=== PATIENT | male | born 1965 | race Caucasian/White ===

== ENCOUNTER 2021-07-12 12:41 | Outpatient (CLI) | payer MEDICARE, MEDICAID, SELFPAY ==
[2021-07-12 12:51] VITALS: BMI 19.9
[2021-07-12] MEDS: LORazepam (*CRX) 0.5 MG TABLET PO (13:00)
[2021-07-12] MEDS: SODIUM CHLORIDE 0.9% IV 250 ML 10 ML IVPB (13:00)
[2021-07-12 13:09] LABS: Basophils Absolute Auto 0.05 K/mm3 (0.00-0.10); Basophils Percent Auto 0.6 % (0.0-1.0); Eosinophils Absolute Auto 0.25 K/mm3 (0.02-0.50); Eosinophils Percent Auto 2.8 % (1.0-6.0); Hematocrit 36.5 % (40.0-54.0); Hemoglobin 11.9 g/dL (14.0-18.0); Immature Granulocyte Absolute 0.03 K/mm3 (0.00-0.00); Immature Granulocyte Percent A 0.3 % (0.0-0.0); Lymphocytes Absolute Auto 1.18 K/mm3 (1.10-4.50); Lymphocytes Percent Auto 13.2 % (18.0-42.0); Mean Corpuscular HGB Conc 32.6 g/dL (32.0-36.0); Mean Corpuscular Hemoglobin 31.6 pg (27.0-31.0); Mean Corpuscular Volume 97.1 fL (78.0-102.0); Mean Platelet Volume 9.1 fl (8.7-11.0); Monocytes Absolute Auto 0.66 K/mm3 (0.10-0.90); Monocytes Percent Auto 7.4 % (2.0-11.0); Neutrophils Absolute Auto 6.8 K/mm3 (1.7-7.2); Neutrophils Percent Auto 75.7 % (50.0-70.0); Platelet Count Result 301 K/mm3 (150-420); Red Blood Count 3.76 M/mm3 (4.70-6.10); Red Cell Distribution Width 12.8 % (11.6-14.4); White Blood Count 8.9 K/mm3 (4.8-10.8)
[2021-07-12 13:13] VITALS: BP 136/84; PULSE 60; RESP 14; TEMP 35.9; O2SAT 98
[2021-07-12 13:25] LABS: Alanine Aminotransferase 11 U/L (16-63); Albumin Level 3.1 g/dL (3.4-5.0); Alkaline Phosphatase 145 U/L (46-116); Anion Gap 6 mmol/L (8-16); Aspartate Amino Transferase 14 U/L (15-37); Bilirubin,Total 0.4 mg/dL (0.00-1.00); Blood Urea Nitrogen 24 mg/dL (7-18); Calcium 9.3 mg/dL (8.5-10.1); Carbon Dioxide 27 mmol/L (21-32); Chloride 100 mmol/L (98-108); Estimated CRCL calculation 71 ml/min; Estimated Glomerular Filt Rate > 60; Glucose 86 mg/dL (70-99); Magnesium 1.7 mg/dL (1.8-2.4); Osmolality Calculated 279 mOsm/kg (285-295); Potassium 4.2 mmol/L (3.5-5.1); Sodium 133 mmol/L (136-145); Total Protein 7.2 g/dL (6.4-8.2)
[2021-07-12] MEDS: PALONOSETRON HCL 0.25 MG/5 ML VIAL IV PUSH (14:00)
[2021-07-12] MEDS: DEXAMETHASONE SOD PHOS INJ 4 MG/ML VIAL 12 MG IV PUSH (14:03)
[2021-07-12] MEDS: FAMOTIDINE 20 MG/2 ML VIAL IV PUSH (14:05)
[2021-07-12] MEDS: FOSAPREPITANT DIMEGLUMINE 150 MG in SODIUM CHLORIDE 0.9% IV 250 ML 500 MG IVPB (14:09)
[2021-07-12] MEDS: HEPARIN SODIUM LOCK FLUSH 500 UNITS/5 ML SYRINGE IV PUSH (15:51)
--- NOTE | 2021-07-12 17:19 | PC.NURSE ---
Patient here for Cycle 1 Cisplatin chemo regime. Chemo education given. Labs drawn/reviewed results/ok'd for chemo. All concerns answered. IV Chemo regimen administered. SEE MAR. Tolerated well. Safe exit of hospital. Will return July after radiation for Cycle 2.
== END 2021-07-12 12:42 | disposition home or self-care (01) ==
LOC: CHSTREATRM 12:48
PROVIDERS: Visit Provider Internal Medicine Hematology & Oncology
DX: Z51.11 Encounter for antineoplastic chemotherapy (principal); C09.9 Malignant neoplasm of tonsil, unspecified
CPT/HCPCS: 36415; 80053; 83735; 85025; 96366; 96367; 96375; 96413; A9270; J1100; J1453; J2469; J3475; J3480; J7030; J7040; J7050; J9060

== ENCOUNTER 2021-08-02 09:55 | Outpatient (CLI) | payer MEDICARE, MEDICAID, SELFPAY ==
--- NOTE | 2021-08-02 10:15 | PC.NURSE ---
Pt to OP infusion amb per self. Chemo plan of care discussed. Pt has no questions or complaints. Oriented to area. Reminded to call with needs.
[2021-08-02 10:29] LABS: Hematocrit 30.9 % (40.0-54.0); Hemoglobin 9.7 g/dL (14.0-18.0); Mean Corpuscular HGB Conc 31.4 g/dL (32.0-36.0); Mean Corpuscular Hemoglobin 31.6 pg (27.0-31.0); Mean Corpuscular Volume 100.7 fL (78.0-102.0); Mean Platelet Volume 8.8 fl (8.7-11.0); Platelet Count Result 176 K/mm3 (150-420); Red Blood Count 3.07 M/mm3 (4.70-6.10); Red Cell Distribution Width 14.4 % (11.6-14.4); White Blood Count 4.6 K/mm3 (4.8-10.8)
[2021-08-02 11:01] VITALS: BP 135/86; PULSE 51; RESP 20; TEMP 35.8; O2SAT 97
[2021-08-02 11:01] LABS: Alanine Aminotransferase 13 U/L (16-63); Albumin Level 2.8 g/dL (3.4-5.0); Alkaline Phosphatase 104 U/L (46-116); Anion Gap 6 mmol/L (8-16); Aspartate Amino Transferase 11 U/L (15-37); Bilirubin,Total 0.2 mg/dL (0.00-1.00); Blood Urea Nitrogen 17 mg/dL (7-18); Calcium 8.2 mg/dL (8.5-10.1); Carbon Dioxide 29 mmol/L (21-32); Chloride 106 mmol/L (98-108); Estimated Glomerular Filt Rate > 60; Glucose 79 mg/dL (70-99); Magnesium 1.7 mg/dL (1.8-2.4); Osmolality Calculated 292 mOsm/kg (285-295); Potassium 3.9 mmol/L (3.5-5.1); Sodium 141 mmol/L (136-145); Total Protein 5.6 g/dL (6.4-8.2)
[2021-08-02] MEDS: LORazepam (*CRX) 0.5 MG TABLET PO (11:20)
[2021-08-02] MEDS: FAMOTIDINE 20 MG/2 ML VIAL (11:20)
[2021-08-02] MEDS: DEXAMETHASONE SOD PHOS INJ 4 MG/ML VIAL 12 MG IV PUSH (11:23)
[2021-08-02] MEDS: PALONOSETRON HCL 0.25 MG/5 ML VIAL IV PUSH (11:30)
[2021-08-02] MEDS: FOSAPREPITANT DIMEGLUMINE 150 MG in SODIUM CHLORIDE 0.9% IV 250 ML 750 MG IVPB (11:35)
--- NOTE | 2021-08-02 12:30 | PC.NURSE ---
Pt ate 100% of lunch without complaint.
--- NOTE | 2021-08-02 14:00 | PC.NURSE ---
Pt up to BR to void and back to bed. Has no complaints.
[2021-08-02] MEDS: MANNITOL 20% 62.5 ML, SODIUM CHLORIDE 0.9% IV 100 ML 400 ML IVPB (14:02)
--- NOTE | 2021-08-02 15:30 | PC.NURSE ---
Pt sleeping. Appears comfortable.
[2021-08-02] MEDS: HEPARIN SODIUM LOCK FLUSH 500 UNITS/5 ML SYRINGE IV PUSH (16:20)
--- NOTE | 2021-08-02 16:31 | PC.NURSE ---
Pt discharged to home amb per self.
== END 2021-08-02 09:56 | disposition home or self-care (01) ==
LOC: CHSTREATRM 10:01
PROVIDERS: Visit Provider Internal Medicine Hematology & Oncology
DX: Z51.11 Encounter for antineoplastic chemotherapy (principal); C09.9 Malignant neoplasm of tonsil, unspecified
CPT/HCPCS: 36415; 80053; 83735; 85027; 96365; 96366; 96367; 96374; 96375; 96413; A9270; J1100; J1453; J2469; J3475; J3480; J7030; J7040; J7050; J9060

== ENCOUNTER 2021-08-23 11:03 | Outpatient (CLI) | payer MEDICARE, MEDICAID, SELFPAY ==
[2021-08-23 11:30] VITALS: BMI 18.0
[2021-08-23 11:31] LABS: Hematocrit 31.9 % (40.0-54.0); Hemoglobin 10.4 g/dL (14.0-18.0); Mean Corpuscular HGB Conc 32.6 g/dL (32.0-36.0); Mean Corpuscular Hemoglobin 31.6 pg (27.0-31.0); Mean Platelet Volume 9.6 fl (8.7-11.0); Platelet Count Result 388 K/mm3 (150-420); Red Blood Count 3.29 M/mm3 (4.70-6.10); Red Cell Distribution Width 15.4 % (11.6-14.4); White Blood Count 2.4 K/mm3 (4.8-10.8)
[2021-08-23 11:32] VITALS: BP 120/83; PULSE 64; RESP 14; TEMP 36; O2SAT 97
[2021-08-23 11:53] LABS: Albumin Level 3.2 g/dL (3.4-5.0); Alkaline Phosphatase 99 U/L (46-116); Anion Gap 3 mmol/L (8-16); Aspartate Amino Transferase < 10 U/L (15-37); Bilirubin,Total 0.3 mg/dL (0.00-1.00); Blood Urea Nitrogen 29 mg/dL (7-18); Calcium 8.5 mg/dL (8.5-10.1); Carbon Dioxide 30 mmol/L (21-32); Chloride 101 mmol/L (98-108); Estimated CRCL calculation 52 ml/min; Estimated Glomerular Filt Rate > 60; Glucose 82 mg/dL (70-99); Osmolality Calculated 282 mOsm/kg (285-295); Potassium 4.6 mmol/L (3.5-5.1); Sodium 134 mmol/L (136-145); Total Protein 6.9 g/dL (6.4-8.2)
[2021-08-23] MEDS: SODIUM CHLORIDE 0.9% IV 250 ML 30 ML (12:00)
[2021-08-23 12:05] LABS: Alanine Aminotransferase 7 U/L (16-63)
[2021-08-23 12:11] LABS: Band Neutrophils Percent 0 % (0-6); Basophils Percent Manual 0 % (0-1); Eosinophils Percent Manual 0 % (1-6); Lymphocytes Absolute Manual 0.76 K/mm3 (1.1-4.5); Lymphocytes Percent Manual 32 % (18-44); Monocytes Absolute Manual 0.67 K/mm3 (0.1-0.90); Monocytes Percent Manual 28 % (3-9); Neutrophils Absolute Manual 0.96 K/mm3 (1.3-6.7); Neutrophils Percent Manual 40 % (46-73); Platelet Estimate Adequate (Adequate); Total Cells Counted 100
[2021-08-23] MEDS: FAMOTIDINE 20 MG/2 ML VIAL IV PUSH (12:18)
[2021-08-23] MEDS: LORazepam (*CRX) 0.5 MG TABLET PO (12:29)
[2021-08-23] MEDS: PALONOSETRON HCL 0.25 MG/5 ML VIAL IV PUSH (13:21)
[2021-08-23] MEDS: FOSAPREPITANT DIMEGLUMINE 150 MG in SODIUM CHLORIDE 0.9% IV 250 ML 750 MG IVPB (13:33)
[2021-08-23] MEDS: DEXAMETHASONE SOD PHOS INJ 4 MG/ML VIAL 12 MG IV PUSH (13:33)
[2021-08-23] MEDS: MANNITOL 20% 62.5 ML, SODIUM CHLORIDE 0.9% IV 100 ML 400 ML IVPB (15:15)
[2021-08-23] MEDS: HEPARIN SODIUM LOCK FLUSH 500 UNITS/5 ML SYRINGE IV PUSH (17:29)
[2021-08-23 17:33] VITALS: BP 123/80; PULSE 59; RESP 14; TEMP 36.7; O2SAT 96
--- NOTE | 2021-08-23 17:35 | PC.NURSE ---
Patient here for Cycle 3 of 3 so far of Cisplatin IV chemo regimen. Patient came from radiation. Labs draw/reviewed/ok'd for chemo. Ongoing chemo education given. All concerns voiced. Patient hoping that this is it. He will be seeing Dr. Nicole in 2 weeks. IV Chemo regimen administered. SEE MAR. Tolerated well. Safe exit of hospital.
== END 2021-08-23 11:04 | disposition home or self-care (01) ==
LOC: CHSTREATRM 11:08
PROVIDERS: PCP Internal Medicine Hematology & Oncology; Visit Provider Internal Medicine Hematology & Oncology
DX: Z51.11 Encounter for antineoplastic chemotherapy (principal); C09.9 Malignant neoplasm of tonsil, unspecified
CPT/HCPCS: 36415; 80053; 83735; 85025; 96366; 96367; 96375; 96413; A9270; J1100; J1453; J2469; J3475; J3480; J7040; J7050; J9060

== ENCOUNTER 2022-04-08 09:53 | Outpatient (CLI) | payer MEDICARE, MEDICAID, SELFPAY ==
[2022-04-08 10:04] VITALS: BMI 17.9
[2022-04-08 10:29] VITALS: BP 140/99; PULSE 60; RESP 14; TEMP 36.6; O2SAT 98
[2022-04-08 10:32] LABS: Mean Corpuscular Volume 94.1 fL (78.0-102.0)
[2022-04-08 10:57] LABS: Hemoglobin 12.6 g/dL (14.0-18.0); Red Blood Count 3.74 M/mm3 (4.70-6.10); White Blood Count 9.3 K/mm3 (4.8-10.8)
[2022-04-08 10:58] LABS: Hematocrit 37.1 % (40.0-54.0); Mean Corpuscular Hemoglobin 33.7 pg (27.0-31.0); Mean Platelet Volume 10.1 fl (8.7-11.0); Platelet Count Result 272 K/mm3 (150-420); Red Cell Distribution Width 11.9 % (11.6-14.4)
[2022-04-08 10:59] LABS: Basophils Percent Auto 0.5 % (0.0-1.0); Immature Granulocyte Absolute 0.06 K/mm3 (0.00-0.00); Immature Granulocyte Percent A 0.6 % (0.0-0.0); Lymphocytes Percent Auto 7.9 % (18.0-42.0); Monocytes Percent Auto 8.6 % (2.0-11.0); Neutrophils Percent Auto 79.4 % (50.0-70.0)
[2022-04-08 11:00] LABS: Basophils Absolute Auto 0.05 K/mm3 (0.00-0.10); Eosinophils Absolute Auto 0.28 K/mm3 (0.02-0.50); Lymphocytes Absolute Auto 0.73 K/mm3 (1.10-4.50); Neutrophils Absolute Auto 7.4 K/mm3 (1.7-7.2)
[2022-04-08 11:02] LABS: Albumin Level 3.1 g/dL (3.4-5.0); Alkaline Phosphatase 166 U/L (46-116); Anion Gap 11 mmol/L (8-16); Aspartate Amino Transferase 15 U/L (15-37); Bilirubin,Total 0.7 mg/dL (0.00-1.00); Blood Urea Nitrogen 32 mg/dL (7-18); Calcium 8.9 mg/dL (8.5-10.1); Carbon Dioxide 26 mmol/L (21-32); Chloride 102 mmol/L (98-108); Estimated CRCL calculation 38 ml/min; Estimated Glomerular Filt Rate 43; Glucose 85 mg/dL (70-99); Osmolality Calculated 293 mOsm/kg (285-295); Potassium 4.2 mmol/L (3.5-5.1); Sodium 139 mmol/L (136-145); Thyroid Stimulating Hormone 0.41 uIU/mL (0.36-3.74); Total Protein 7.3 g/dL (6.4-8.2)
[2022-04-08 11:10] LABS: Alanine Aminotransferase 6 U/L (16-63)
[2022-04-08] MEDS: FOSAPREPITANT DIMEGLUMINE 150 MG in SODIUM CHLORIDE 0.9% IV 250 ML 750 MG IVPB (11:30)
[2022-04-08] MEDS: PEMBROLIZUMAB 200 MG in SODIUM CHLORIDE 0.9% IV 100 ML IVPB (12:30)
[2022-04-08 13:09] VITALS: BP 145/91; PULSE 58; RESP 14; TEMP 36.4; O2SAT 98
--- NOTE | 2022-04-08 13:10 | PC.NURSE ---
Patient here for cycle 1 of 3 chemo regimen-Carbo/5 FU/Keytruda. Education given. All concerns answered. Blood drawn/reviewed/ok'd for chemo. Chemo regimen administered. SEE MAR. Patient tolerated well. Will be taking chemo home pump of 5 FU for next 4 days. All education on chemo spill kit/take home pump etc given. Safe exit of hospital with friend. Will return 04/12/22 at 1300 to get pump off and flush port.
[2022-04-10 23:04] LABS: Cortisol Random 29.8 mcg/dL (***)
--- NOTE | 2022-04-12 12:59 | PC.NURSE ---
Patient here for Chemo pump removal. All concerns answered about chemo side effects. Patient feeling very fatique. Chemo pump infusion completed. Pump removed. Port asystomatic of s/sx of infection. Port flushed per protocol. Tolerated well. Safe exit of hospital. Will return Apr 29, 2022 at 1000 for cycle 2.
== END 2022-04-08 09:54 | disposition home or self-care (01) ==
PROVIDERS: PCP Internal Medicine Hematology & Oncology; Visit Provider Internal Medicine Hematology & Oncology
DX: Z51.11 Encounter for antineoplastic chemotherapy (principal); C09.9 Malignant neoplasm of tonsil, unspecified; R45.4 Irritability and anger
CPT/HCPCS: 36415; 80053; 82533; 84443; 85025; 96367; 96413; 96416; 96417; J1100; J1453; J2405; J7050; J9045; J9190; J9271

== ENCOUNTER 2022-04-29 09:55 | Outpatient (CLI) | payer MEDICARE, MEDICAID, SELFPAY ==
[2022-04-29 10:18] VITALS: BP 135/91; PULSE 64; RESP 14; TEMP 36.7; O2SAT 99
[2022-04-29 10:20] VITALS: BMI 19.0
[2022-04-29 10:34] LABS: Hematocrit 31.3 % (40.0-54.0); Hemoglobin 10.4 g/dL (14.0-18.0); Mean Corpuscular HGB Conc 33.2 g/dL (32.0-36.0); Mean Corpuscular Hemoglobin 33.3 pg (27.0-31.0); Mean Corpuscular Volume 100.3 fL (78.0-102.0); Mean Platelet Volume 9.7 fl (8.7-11.0); Platelet Count Result 137 K/mm3 (150-420); Red Blood Count 3.12 M/mm3 (4.70-6.10); White Blood Count 3.3 K/mm3 (4.8-10.8)
[2022-04-29 10:44] LABS: Alanine Aminotransferase 10 U/L (16-63); Albumin Level 3.6 g/dL (3.4-5.0); Alkaline Phosphatase 112 U/L (46-116); Anion Gap 7 mmol/L (8-16); Aspartate Amino Transferase < 10 U/L (15-37); Bilirubin,Total 0.2 mg/dL (0.00-1.00); Blood Urea Nitrogen 34 mg/dL (7-18); Calcium 8.6 mg/dL (8.5-10.1); Carbon Dioxide 27 mmol/L (21-32); Chloride 104 mmol/L (98-108); Estimated CRCL calculation 41 ml/min; Estimated Glomerular Filt Rate 44; Glucose 106 mg/dL (70-99); Osmolality Calculated 293 mOsm/kg (285-295); Potassium 4.2 mmol/L (3.5-5.1); Sodium 138 mmol/L (136-145); Total Protein 7.1 g/dL (6.4-8.2)
[2022-04-29] MEDS: SODIUM CHLORIDE 0.9% IV 250 ML 10 ML IVPB (10:50)
[2022-04-29 11:00] LABS: Eosinophils Absolute Manual 0.29 K/mm3 (0.02-0.5); Eosinophils Percent Manual 9 % (1-6); Lymphocytes Absolute Manual 0.89 K/mm3 (1.1-4.5); Lymphocytes Percent Manual 27 % (18-44); Monocytes Absolute Manual 0.19 K/mm3 (0.1-0.90); Monocytes Percent Manual 6 % (3-9); Neutrophils Absolute Manual 1.91 K/mm3 (1.3-6.7); Neutrophils Percent Manual 58 % (46-73); Platelet Estimate Adequate (Adequate); Total Cells Counted 100
[2022-04-29 11:03] LABS: Thyroid Stimulating Hormone 2.43 uIU/mL (0.36-3.74)
[2022-04-29] MEDS: FOSAPREPITANT DIMEGLUMINE 150 MG in SODIUM CHLORIDE 0.9% IV 250 ML 750 MG IVPB (11:20)
[2022-04-29] MEDS: PEMBROLIZUMAB 200 MG in SODIUM CHLORIDE 0.9% IV 100 ML IVPB (12:24)
[2022-04-29 12:50] VITALS: BP 123/88; PULSE 68; RESP 14; O2SAT 97
--- NOTE | 2022-04-29 13:09 | PC.NURSE ---
Patient here for cycle 2 chemo regimen. Education given. Labs drawn/reviewed/ok'd. IV Chemo regimen administered. See MAR. tolerated well. Discharged with 5 Fu continue on home pump --all education reinforced on take home pump and chemo/care etc. Voices understanding. Safe exit of hospital with friend. Will return on 05/03/22 @ 1300 for pump removal and port flush.
--- NOTE | 2022-05-03 13:05 | PC.NURSE ---
05/03/22 1300 Patient here to get chemo pump removed and port flushed. Voices only had one bad day of feeling blah. No emesis. Chemo pump removed. Port flushed per protocol. Safe exit of hospital with friend. Will return 05/22/22 at 1000 for cycle 3.KJ
[2022-05-03 14:16] LABS: Cortisol Random 16.8 mcg/dL (***)
== END 2022-04-29 09:56 | disposition home or self-care (01) ==
PROVIDERS: PCP Internal Medicine Hematology & Oncology; Visit Provider Internal Medicine Hematology & Oncology
DX: Z51.11 Encounter for antineoplastic chemotherapy (principal); C09.9 Malignant neoplasm of tonsil, unspecified; R45.4 Irritability and anger
CPT/HCPCS: 36415; 80053; 82533; 84443; 85025; 96367; 96413; 96416; 96417; J1100; J1453; J2405; J7050; J9045; J9190; J9271

== ENCOUNTER 2022-05-20 10:03 | Outpatient (CLI) | payer MEDICARE, MEDICAID, SELFPAY ==
[2022-05-20 10:15] VITALS: BP 118/72; PULSE 72; RESP 16; TEMP 35.9; O2SAT 96
[2022-05-20 10:16] VITALS: BMI 18.3
[2022-05-20 10:17] LABS: Basophils Absolute Auto 0.02 K/mm3 (0.00-0.10); Basophils Percent Auto 0.4 % (0.0-1.0); Eosinophils Absolute Auto 0.12 K/mm3 (0.02-0.50); Eosinophils Percent Auto 2.3 % (1.0-6.0); Hematocrit 29.7 % (40.0-54.0); Hemoglobin 9.8 g/dL (14.0-18.0); Immature Granulocyte Absolute 0.05 K/mm3 (0.00-0.00); Immature Granulocyte Percent A 0.9 % (0.0-0.0); Lymphocytes Absolute Auto 1.06 K/mm3 (1.10-4.50); Mean Corpuscular Hemoglobin 33.1 pg (27.0-31.0); Mean Corpuscular Volume 100.3 fL (78.0-102.0); Mean Platelet Volume 10.1 fl (8.7-11.0); Monocytes Percent Auto 11.3 % (2.0-11.0); Neutrophils Absolute Auto 3.5 K/mm3 (1.7-7.2); Neutrophils Percent Auto 65.1 % (50.0-70.0); Platelet Count Result 161 K/mm3 (150-420); Red Blood Count 2.96 M/mm3 (4.70-6.10); Red Cell Distribution Width 15.1 % (11.6-14.4); White Blood Count 5.3 K/mm3 (4.8-10.8)
[2022-05-20] MEDS: SODIUM CHLORIDE 0.9% IV 250 ML 10 ML IVPB (10:30)
[2022-05-20 10:41] LABS: Albumin Level 3.1 g/dL (3.4-5.0); Alkaline Phosphatase 135 U/L (46-116); Anion Gap 8 mmol/L (8-16); Bilirubin,Total 0.4 mg/dL (0.00-1.00); Blood Urea Nitrogen 35 mg/dL (7-18); Calcium 8.9 mg/dL (8.5-10.1); Carbon Dioxide 26 mmol/L (21-32); Chloride 105 mmol/L (98-108); Estimated CRCL calculation 41 ml/min; Estimated Glomerular Filt Rate 47; Glucose 88 mg/dL (70-99); Osmolality Calculated 295 mOsm/kg (285-295); Potassium 4.5 mmol/L (3.5-5.1); Sodium 139 mmol/L (136-145); Thyroid Stimulating Hormone 0.56 uIU/mL (0.36-3.74); Total Protein 7.6 g/dL (6.4-8.2)
[2022-05-20 10:50] LABS: Alanine Aminotransferase 13 U/L (16-63); Aspartate Amino Transferase 10 U/L (15-37)
[2022-05-20] MEDS: FOSAPREPITANT DIMEGLUMINE 150 MG in SODIUM CHLORIDE 0.9% IV 250 ML 750 MG IVPB (11:27)
[2022-05-20] MEDS: PEMBROLIZUMAB 200 MG in SODIUM CHLORIDE 0.9% IV 100 ML IVPB (12:20)
[2022-05-20 12:56] VITALS: BP 109/63; PULSE 72; RESP 14; TEMP 36.3; O2SAT 97
--- NOTE | 2022-05-20 12:59 | PC.NURSE ---
Patient here for cycle 3 chemo regimen. Education given. All concerns answered. Patient with increase fatigue today. Labs drawn/reviewed.ok'd for chemo. Chemo regimen administered. SEE MAR. Tolerated well. Will return 05/24/22 at 1300 for chemo pump to removed. Safe exit of hospital with friend.
[2022-05-24 04:14] LABS: Cortisol Random 21.5 mcg/dL (***)
[2022-05-24] MEDS: HEPARIN SODIUM LOCK FLUSH 500 UNITS/5 ML SYRINGE IV PUSH (12:45)
--- NOTE | 2022-05-24 18:27 | PC.NURSE ---
05/24/22 1245 Patient here to get chemo pump removed and port deccessed and flushed. Reports had two days that he was sick to his stomach and just not feeling good. Reports feels pretty good today. Chemo pump removed and port flushed SEE MAR. Will be scheduled for scans then more likely with come to get cycle 4 on 06/10/22. Safe exit of hospital with friend.
== END 2022-05-20 10:04 | disposition home or self-care (01) ==
LOC: CHSTREATRM 10:05
PROVIDERS: Visit Provider Internal Medicine Hematology & Oncology
DX: Z51.11 Encounter for antineoplastic chemotherapy (principal); C09.9 Malignant neoplasm of tonsil, unspecified; R45.4 Irritability and anger
CPT/HCPCS: 36415; 36592; 80053; 82533; 84443; 85025; 96367; 96413; 96416; 96417; J1100; J1453; J2405; J7050; J9045; J9190; J9271

== ENCOUNTER 2022-06-10 09:56 | Outpatient (CLI) | payer MEDICARE, MEDICAID, SELFPAY ==
[2022-06-10 10:23] LABS: Hematocrit 25.1 % (40.0-54.0); Hemoglobin 8.5 g/dL (14.0-18.0); Mean Corpuscular HGB Conc 33.9 g/dL (32.0-36.0); Mean Corpuscular Hemoglobin 35.3 pg (27.0-31.0); Mean Corpuscular Volume 104.1 fL (78.0-102.0); Mean Platelet Volume 10.8 fl (8.7-11.0); Platelet Count Result 120 K/mm3 (150-420); Red Blood Count 2.41 M/mm3 (4.70-6.10); Red Cell Distribution Width 19.9 % (11.6-14.4); White Blood Count 3.5 K/mm3 (4.8-10.8)
[2022-06-10 10:25] VITALS: BP 143/89; PULSE 92; RESP 14; TEMP 36.6; O2SAT 99
[2022-06-10 10:29] VITALS: BMI 19.0
[2022-06-10 10:35] LABS: Band Neutrophils Percent 1 % (0-6); Eosinophils Absolute Manual 0.28 K/mm3 (0.02-0.5); Eosinophils Percent Manual 8 % (1-6); Lymphocytes Absolute Manual 0.59 K/mm3 (1.1-4.5); Lymphocytes Percent Manual 17 % (18-44); Monocytes Absolute Manual 0.38 K/mm3 (0.1-0.90); Monocytes Percent Manual 11 % (3-9); Neutrophils Absolute Manual 2.24 K/mm3 (1.3-6.7); Neutrophils Percent Manual 63 % (46-73); Platelet Estimate Adequate (Adequate); Total Cells Counted 100
[2022-06-10 10:37] LABS: Alanine Aminotransferase 16 U/L (16-63); Albumin Level 3.4 g/dL (3.4-5.0); Alkaline Phosphatase 104 U/L (46-116); Anion Gap 8 mmol/L (8-16); Aspartate Amino Transferase 12 U/L (15-37); Bilirubin,Total 0.3 mg/dL (0.00-1.00); Blood Urea Nitrogen 32 mg/dL (7-18); Calcium 8.4 mg/dL (8.5-10.1); Carbon Dioxide 26 mmol/L (21-32); Chloride 107 mmol/L (98-108); Estimated CRCL calculation 47 ml/min; Estimated Glomerular Filt Rate 52; Glucose 94 mg/dL (70-99); Osmolality Calculated 298 mOsm/kg (285-295); Potassium 4.3 mmol/L (3.5-5.1); Sodium 141 mmol/L (136-145); Total Protein 6.7 g/dL (6.4-8.2)
[2022-06-10] MEDS: SODIUM CHLORIDE 0.9% IV 250 ML 10 ML IVPB (10:53)
[2022-06-10] MEDS: FOSAPREPITANT DIMEGLUMINE 150 MG in SODIUM CHLORIDE 0.9% IV 250 ML 750 MG IVPB (11:20)
[2022-06-10] MEDS: PEMBROLIZUMAB 200 MG in SODIUM CHLORIDE 0.9% IV 100 ML IVPB (12:12)
--- NOTE | 2022-06-10 12:53 | PC.NURSE ---
Patient here for chemo regimen #4. Education given. All concerns voiced answered. Labs drawn/reviewed/ok's for chemo. Chemo regimen administered SEE MAR. Tolerated well. Patient going home on chemo take home pump. Will return 06/14/22 at 1300 for pump removal. Safe exit of hospital with friend.
[2022-06-10 13:02] VITALS: BP 143/77; PULSE 88; RESP 14; O2SAT 97
[2022-06-14] MEDS: HEPARIN SODIUM LOCK FLUSH 500 UNITS/5 ML SYRINGE IV PUSH (13:35)
--- NOTE | 2022-06-14 13:35 | PC.NURSE ---
06/14/22 1300 Back for chemo pump removal and port flush. Patient reports did good with this treatment. No N/V. Just tiredness . Chemo pump removed. Port flushed. Safe exit of hospital. Will return 07/01/22 for cycle 5.
== END 2022-06-10 09:57 | disposition home or self-care (01) ==
LOC: CHSTREATRM 09:58
PROVIDERS: Visit Provider Internal Medicine Hematology & Oncology
DX: Z51.11 Encounter for antineoplastic chemotherapy (principal); C09.9 Malignant neoplasm of tonsil, unspecified
CPT/HCPCS: 36415; 36592; 80053; 85025; 96367; 96413; 96416; 96417; J1100; J1453; J2405; J7050; J9045; J9190; J9271

== ENCOUNTER 2022-07-01 10:16 | Outpatient (CLI) | payer MEDICARE, MEDICAID, SELFPAY ==
[2022-07-01 10:45] LABS: Basophils Absolute Auto 0.02 K/mm3 (0.00-0.10); Basophils Percent Auto 0.4 % (0.0-1.0); Eosinophils Percent Auto 3.5 % (1.0-6.0); Hematocrit 28.2 % (40.0-54.0); Hemoglobin 9.9 g/dL (14.0-18.0); Immature Granulocyte Absolute 0.02 K/mm3 (0.00-0.00); Immature Granulocyte Percent A 0.4 % (0.0-0.0); Lymphocytes Absolute Auto 0.77 K/mm3 (1.10-4.50); Lymphocytes Percent Auto 13.7 % (18.0-42.0); Mean Corpuscular HGB Conc 35.1 g/dL (32.0-36.0); Mean Corpuscular Hemoglobin 38.4 pg (27.0-31.0); Mean Corpuscular Volume 109.3 fL (78.0-102.0); Mean Platelet Volume 10.5 fl (8.7-11.0); Monocytes Absolute Auto 0.63 K/mm3 (0.10-0.90); Monocytes Percent Auto 11.2 % (2.0-11.0); Neutrophils Percent Auto 70.8 % (50.0-70.0); Platelet Count Result 140 K/mm3 (150-420); Red Blood Count 2.58 M/mm3 (4.70-6.10); White Blood Count 5.6 K/mm3 (4.8-10.8)
[2022-07-01 10:51] VITALS: BP 128/76; PULSE 66; RESP 14; TEMP 36.2; O2SAT 100
[2022-07-01 10:53] VITALS: BMI 18.8
[2022-07-01 11:18] LABS: Alanine Aminotransferase 13 U/L (16-63); Albumin Level 3.9 g/dL (3.4-5.0); Alkaline Phosphatase 106 U/L (46-116); Anion Gap 11 mmol/L (8-16); Aspartate Amino Transferase 15 U/L (15-37); Bilirubin,Total 0.5 mg/dL (0.00-1.00); Blood Urea Nitrogen 37 mg/dL (7-18); Calcium 9.1 mg/dL (8.5-10.1); Carbon Dioxide 27 mmol/L (21-32); Chloride 105 mmol/L (98-108); Estimated CRCL calculation 37 ml/min; Estimated Glomerular Filt Rate 39; Glucose 140 mg/dL (70-99); Osmolality Calculated 306 mOsm/kg (285-295); Potassium 3.9 mmol/L (3.5-5.1); Sodium 143 mmol/L (136-145); Thyroid Stimulating Hormone 0.57 uIU/mL (0.36-3.74); Total Protein 7.5 g/dL (6.4-8.2)
[2022-07-01] MEDS: SODIUM CHLORIDE 0.9% IV 250 ML 10 ML IVPB (11:46)
[2022-07-01] MEDS: FOSAPREPITANT DIMEGLUMINE 150 MG in SODIUM CHLORIDE 0.9% IV 250 ML 750 MG IVPB (12:00)
[2022-07-01] MEDS: PEMBROLIZUMAB 200 MG in SODIUM CHLORIDE 0.9% IV 100 ML IVPB (13:02)
[2022-07-01 13:39] VITALS: BP 121/63; PULSE 68; RESP 14; O2SAT 100
--- NOTE | 2022-07-01 13:42 | PC.NURSE ---
Patient here for cycle 5 of chemo regimen. Reports being very tired today. Also more emotional then his usual. Patient had scans this week and won't find results until next week. Labs drawn/reviewed/ok'd for chemo today. Education given. All concerns voiced. IV chemo regimen administered. SEE MAR. Tolerated well. Will go home on with take home pump of 5 FU infusing. Will return on 07/05/22 Sat for removal. Safe exit of hospital with friend.
[2022-07-04 05:34] LABS: Cortisol Random 21.1 mcg/dL (***)
[2022-07-05] MEDS: HEPARIN SODIUM LOCK FLUSH 500 UNITS/5 ML SYRINGE IV PUSH (13:20)
--- NOTE | 2022-07-05 13:21 | PC.NURSE ---
Patient here for chemo pump removal. Patient reports was down and out feeling bad the first two days, but since that felt ok. Chemo pump removed. Port flushed per protocol. Will return 07/22/22 at 1000 for Cycle 6. States, I see Dr. Nicole on Thursday. Safe exit of hospital with friend.
== END 2022-07-01 10:17 | disposition home or self-care (01) ==
PROVIDERS: Visit Provider Internal Medicine Hematology & Oncology
DX: Z51.11 Encounter for antineoplastic chemotherapy (principal); C09.9 Malignant neoplasm of tonsil, unspecified; R45.4 Irritability and anger
CPT/HCPCS: 36415; 36592; 80053; 82533; 84443; 85025; 96367; 96413; 96416; 96417; J1100; J1453; J2405; J7050; J9045; J9190; J9271

== ENCOUNTER 2022-07-22 10:42 | Outpatient (CLI) | payer MEDICARE, MEDICAID, SELFPAY ==
[2022-07-22 10:59] VITALS: BMI 18.8
[2022-07-22 11:01] VITALS: BP 145/89; PULSE 50; RESP 14; TEMP 36.5; O2SAT 100
[2022-07-22] MEDS: SODIUM CHLORIDE 0.9% IV 250 ML 10 ML IVPB (11:10)
[2022-07-22 11:11] LABS: Hematocrit 25.4 % (40.0-54.0); Hemoglobin 8.2 g/dL (14.0-18.0); Immature Platelet Fraction Pct 4.2 % (1.0-7.0); Mean Corpuscular HGB Conc 32.3 g/dL (32.0-36.0); Mean Corpuscular Hemoglobin 38.9 pg (27.0-31.0); Mean Corpuscular Volume 120.4 fL (78.0-102.0); Mean Platelet Volume 10.9 fl (8.7-11.0); Platelet Count Result 86 K/mm3 (150-420); Red Blood Count 2.11 M/mm3 (4.70-6.10); Red Cell Distribution Width 18.4 % (11.6-14.4); White Blood Count 3.7 K/mm3 (4.8-10.8)
[2022-07-22 11:21] LABS: Band Neutrophils Percent 0 % (0-6); Basophils Percent Manual 0 % (0-1); Eosinophils Absolute Manual 0.18 K/mm3 (0.02-0.5); Eosinophils Percent Manual 5 % (1-6); Lymphocytes Percent Manual 19 % (18-44); Monocytes Absolute Manual 0.37 K/mm3 (0.1-0.90); Monocytes Percent Manual 10 % (3-9); Neutrophils Absolute Manual 2.44 K/mm3 (1.3-6.7); Neutrophils Percent Manual 66 % (46-73); Platelet Estimate Decreased (Adequate); Total Cells Counted 100
[2022-07-22 11:23] LABS: Alanine Aminotransferase 11 U/L (16-63); Albumin Level 3.6 g/dL (3.4-5.0); Alkaline Phosphatase 91 U/L (46-116); Anion Gap 7 mmol/L (8-16); Aspartate Amino Transferase 15 U/L (15-37); Bilirubin,Total 0.3 mg/dL (0.00-1.00); Blood Urea Nitrogen 25 mg/dL (7-18); Calcium 8.4 mg/dL (8.5-10.1); Carbon Dioxide 29 mmol/L (21-32); Chloride 107 mmol/L (98-108); Estimated CRCL calculation 42 ml/min; Estimated Glomerular Filt Rate 46; Glucose 98 mg/dL (70-99); Osmolality Calculated 300 mOsm/kg (285-295); Sodium 143 mmol/L (136-145); Total Protein 6.7 g/dL (6.4-8.2)
[2022-07-22] MEDS: FOSAPREPITANT DIMEGLUMINE 150 MG in SODIUM CHLORIDE 0.9% IV 250 ML 500 MG IVPB (11:57)
[2022-07-22] MEDS: PEMBROLIZUMAB 200 MG in SODIUM CHLORIDE 0.9% IV 100 ML IVPB (12:57)
[2022-07-22 13:39] VITALS: BP 140/73; PULSE 60; RESP 14; TEMP 36.4; O2SAT 98
--- NOTE | 2022-07-22 13:40 | PC.NURSE ---
Patient here for chemo cycle 6 regimen. Reports got good news from scan he had few weeks ago. Re-education given on chemo treatment. Labs drawn/reviewed/ok'd.-Platelet count called to Dr. Nicole and ok'd to proceed. Chemo regime SEE JUN. Tolerated well. Patient dc with Chemo 5 FU on take home pump. Will return 07/26/22 at 1330 for removal. Safe exit of hospital per ambulatory with friend.
[2022-07-27] MEDS: HEPARIN SODIUM LOCK FLUSH 500 UNITS/5 ML SYRINGE IV PUSH (10:04)
--- NOTE | 2022-07-27 10:04 | PC.NURSE ---
07/26/22 1330 Patient return to get chemo pump off. Reports did real good this time. Only compliant is being tired. Chemo pump removed. Safe exit of hospital per ambulatory and with friend.
== END 2022-07-22 10:43 | disposition home or self-care (01) ==
PROVIDERS: Visit Provider Internal Medicine Hematology & Oncology
DX: Z51.11 Encounter for antineoplastic chemotherapy (principal); C09.9 Malignant neoplasm of tonsil, unspecified
CPT/HCPCS: 36415; 36592; 80053; 85025; 85055; 96367; 96413; 96416; 96417; J1100; J1453; J2405; J7050; J9045; J9190; J9271

== ENCOUNTER 2022-08-12 09:49 | Outpatient (CLI) | payer MEDICARE, MEDICAID, SELFPAY ==
--- NOTE | 2022-08-12 10:00 | PC.NURSE ---
Pt to room 202 amb with friend. A&Ox3. Has no complaints or concerns. Oriented to room and plan of care. Call [facility] in reach. Reminded to call with needs.
[2022-08-12 10:19] LABS: Basophils Absolute Auto 0.01 K/mm3 (0.00-0.10); Basophils Percent Auto 0.2 % (0.0-1.0); Eosinophils Absolute Auto 0.07 K/mm3 (0.02-0.50); Eosinophils Percent Auto 1.5 % (1.0-6.0); Hematocrit 25.2 % (40.0-54.0); Hemoglobin 8.3 g/dL (14.0-18.0); Immature Granulocyte Absolute 0.04 K/mm3 (0.00-0.00); Immature Granulocyte Percent A 0.8 % (0.0-0.0); Lymphocytes Absolute Auto 0.71 K/mm3 (1.10-4.50); Lymphocytes Percent Auto 14.8 % (18.0-42.0); Mean Corpuscular HGB Conc 32.9 g/dL (32.0-36.0); Mean Corpuscular Hemoglobin 40.5 pg (27.0-31.0); Mean Corpuscular Volume 122.9 fL (78.0-102.0); Mean Platelet Volume 10.8 fl (8.7-11.0); Monocytes Absolute Auto 0.55 K/mm3 (0.10-0.90); Monocytes Percent Auto 11.5 % (2.0-11.0); Neutrophils Absolute Auto 3.4 K/mm3 (1.7-7.2); Neutrophils Percent Auto 71.2 % (50.0-70.0); Platelet Count Result 128 K/mm3 (150-420); Red Blood Count 2.05 M/mm3 (4.70-6.10); White Blood Count 4.8 K/mm3 (4.8-10.8)
[2022-08-12 10:29] VITALS: BMI 17.1
[2022-08-12 10:36] VITALS: BP 144/100; PULSE 100; RESP 20; TEMP 36.6; O2SAT 100
[2022-08-12 10:43] LABS: Alanine Aminotransferase 14 U/L (16-63); Albumin Level 3.6 g/dL (3.4-5.0); Alkaline Phosphatase 114 U/L (46-116); Anion Gap 8 mmol/L (8-16); Aspartate Amino Transferase 18 U/L (15-37); Bilirubin,Total 0.2 mg/dL (0.00-1.00); Blood Urea Nitrogen 26 mg/dL (7-18); Calcium 8.8 mg/dL (8.5-10.1); Carbon Dioxide 26 mmol/L (21-32); Chloride 105 mmol/L (98-108); Estimated CRCL calculation 40 ml/min; Estimated Glomerular Filt Rate 47; Glucose 97 mg/dL (70-99); Osmolality Calculated 292 mOsm/kg (285-295); Potassium 4.4 mmol/L (3.5-5.1); Sodium 139 mmol/L (136-145); Total Protein 7.1 g/dL (6.4-8.2)
--- NOTE | 2022-08-12 11:15 | PC.NURSE ---
Labs resulted. Pharmacy notified. Pt eating pudding and drinking milk without complaint.
[2022-08-12] MEDS: PEMBROLIZUMAB 200 MG in SODIUM CHLORIDE 0.9% IV 100 ML IVPB (11:35)
[2022-08-12] MEDS: HEPARIN SODIUM LOCK FLUSH 500 UNITS/5 ML SYRINGE IV PUSH (12:05)
--- NOTE | 2022-08-12 12:15 | PC.NURSE ---
Keytruda infused as ordered. Pt tolerated well. Has no concerns or complaints. Discharged to home amb with friend.
[2022-08-16 04:44] LABS: Cortisol Random 15.3 mcg/dL (***)
== END 2022-08-12 09:50 | disposition home or self-care (01) ==
PROVIDERS: Visit Provider Internal Medicine Hematology & Oncology
DX: Z51.11 Encounter for antineoplastic chemotherapy (principal); C09.9 Malignant neoplasm of tonsil, unspecified; R45.4 Irritability and anger
CPT/HCPCS: 36415; 80053; 82533; 84443; 85025; 96413; J9271

== ENCOUNTER 2022-09-02 09:53 | Outpatient (CLI) | payer MEDICARE, MEDICAID, SELFPAY ==
[2022-09-02 10:16] VITALS: BP 172/92; PULSE 60; RESP 14; TEMP 36.3; O2SAT 99
[2022-09-02 10:19] VITALS: BMI 18.3
[2022-09-02 10:19] LABS: Basophils Absolute Auto 0.02 K/mm3 (0.00-0.10); Basophils Percent Auto 0.3 % (0.0-1.0); Eosinophils Absolute Auto 0.49 K/mm3 (0.02-0.50); Eosinophils Percent Auto 7.1 % (1.0-6.0); Hematocrit 27.7 % (40.0-54.0); Hemoglobin 9.1 g/dL (14.0-18.0); Immature Granulocyte Absolute 0.02 K/mm3 (0.00-0.00); Immature Granulocyte Percent A 0.3 % (0.0-0.0); Lymphocytes Absolute Auto 0.61 K/mm3 (1.10-4.50); Lymphocytes Percent Auto 8.8 % (18.0-42.0); Mean Corpuscular HGB Conc 32.9 g/dL (32.0-36.0); Mean Corpuscular Hemoglobin 38.6 pg (27.0-31.0); Mean Corpuscular Volume 117.4 fL (78.0-102.0); Mean Platelet Volume 9.4 fl (8.7-11.0); Monocytes Absolute Auto 0.59 K/mm3 (0.10-0.90); Monocytes Percent Auto 8.6 % (2.0-11.0); Neutrophils Absolute Auto 5.2 K/mm3 (1.7-7.2); Neutrophils Percent Auto 74.9 % (50.0-70.0); Platelet Count Result 200 K/mm3 (150-420); Red Blood Count 2.36 M/mm3 (4.70-6.10); Red Cell Distribution Width 12.3 % (11.6-14.4); White Blood Count 6.9 K/mm3 (4.8-10.8)
[2022-09-02 10:36] LABS: Alanine Aminotransferase 14 U/L (16-63); Alkaline Phosphatase 92 U/L (46-116); Anion Gap 10 mmol/L (8-16); Aspartate Amino Transferase 20 U/L (15-37); Bilirubin,Total 0.2 mg/dL (0.00-1.00); Blood Urea Nitrogen 37 mg/dL (7-18); Calcium 8.6 mg/dL (8.5-10.1); Carbon Dioxide 24 mmol/L (21-32); Chloride 105 mmol/L (98-108); Estimated CRCL calculation 47 ml/min; Estimated Glomerular Filt Rate 54; Glucose 91 mg/dL (70-99); Osmolality Calculated 296 mOsm/kg (285-295); Potassium 4.1 mmol/L (3.5-5.1); Sodium 139 mmol/L (136-145); Total Protein 7.1 g/dL (6.4-8.2)
[2022-09-02] MEDS: PEMBROLIZUMAB 200 MG in SODIUM CHLORIDE 0.9% IV 100 ML IVPB (10:45)
--- NOTE | 2022-09-02 11:14 | PC.NURSE ---
Patient here for cycle 8 IV chemo Keytruda. Education given. Labs drawn/reviewed/ok'd. No concerns voiced. IV Keytruda administered. SEE MAR. Tolerated well. Safe exit of hospital per ambulatory with son/signother. Will return 09/23/22 at 1000 for #9.
[2022-09-02] MEDS: HEPARIN SODIUM LOCK FLUSH 500 UNITS/5 ML SYRINGE IV PUSH (11:19)
[2022-09-02 11:29] VITALS: BP 150/88; PULSE 60; RESP 14; O2SAT 99
== END 2022-09-02 09:54 | disposition home or self-care (01) ==
LOC: CHSTREATRM 09:58
PROVIDERS: PCP Internal Medicine Hematology & Oncology; Visit Provider Internal Medicine Hematology & Oncology
DX: Z51.11 Encounter for antineoplastic chemotherapy (principal); C09.9 Malignant neoplasm of tonsil, unspecified
CPT/HCPCS: 36415; 80053; 85025; 96413; J9271

== ENCOUNTER 2022-09-23 10:45 | Outpatient (CLI) | payer MEDICARE, MEDICAID, SELFPAY ==
[2022-09-23 11:07] LABS: Hematocrit 31.8 % (40.0-54.0); Hemoglobin 10.3 g/dL (14.0-18.0); Mean Corpuscular HGB Conc 32.4 g/dL (32.0-36.0); Mean Corpuscular Hemoglobin 36.5 pg (27.0-31.0); Mean Corpuscular Volume 112.8 fL (78.0-102.0); Mean Platelet Volume 9.3 fl (8.7-11.0); Platelet Count Result 174 K/mm3 (150-420); Red Blood Count 2.82 M/mm3 (4.70-6.10); Red Cell Distribution Width 11.8 % (11.6-14.4); White Blood Count 6.6 K/mm3 (4.8-10.8)
[2022-09-23 11:09] VITALS: BP 138/100; PULSE 72; RESP 14; TEMP 36.6; O2SAT 98
[2022-09-23 11:11] VITALS: BMI 20.2
[2022-09-23 11:19] LABS: Band Neutrophils Percent 0 % (0-6); Lymphocytes Absolute Manual 0.52 K/mm3 (1.1-4.5); Lymphocytes Percent Manual 8 % (18-44); Neutrophils Absolute Manual 4.42 K/mm3 (1.3-6.7); Neutrophils Percent Manual 67 % (46-73); Total Cells Counted 100
[2022-09-23 11:20] LABS: Basophils Absolute Manual 0.06 K/mm3 (0-0.1); Basophils Percent Manual 1 % (0-1); Eosinophils Absolute Manual 0.79 K/mm3 (0.02-0.5); Eosinophils Percent Manual 12 % (1-6); Monocytes Absolute Manual 0.79 K/mm3 (0.1-0.90); Monocytes Percent Manual 12 % (3-9); Platelet Estimate Adequate (Adequate)
[2022-09-23 11:32] LABS: Alanine Aminotransferase 8 U/L (16-63); Albumin Level 3.7 g/dL (3.4-5.0); Anion Gap 9 mmol/L (8-16); Aspartate Amino Transferase 10 U/L (15-37); Bilirubin,Total 0.2 mg/dL (0.00-1.00); Blood Urea Nitrogen 49 mg/dL (7-18); Calcium 8.8 mg/dL (8.5-10.1); Carbon Dioxide 27 mmol/L (21-32); Chloride 104 mmol/L (98-108); Estimated CRCL calculation 49 ml/min; Estimated Glomerular Filt Rate 51; Glucose 89 mg/dL (70-99); Osmolality Calculated 302 mOsm/kg (285-295); Potassium 4.5 mmol/L (3.5-5.1); Sodium 140 mmol/L (136-145); Total Protein 7.2 g/dL (6.4-8.2)
[2022-09-23 11:33] LABS: Alkaline Phosphatase 93 U/L (46-116); Thyroid Stimulating Hormone 2.84 uIU/mL (0.36-3.74)
[2022-09-23] MEDS: PEMBROLIZUMAB 200 MG in SODIUM CHLORIDE 0.9% IV 100 ML IVPB (11:40)
[2022-09-23] MEDS: HEPARIN SODIUM LOCK FLUSH 500 UNITS/5 ML SYRINGE IV PUSH (12:10)
--- NOTE | 2022-09-23 13:10 | PC.NURSE ---
09/23/22 [id number] Patient here for#9 chemo Keytruda infusion. Education given. Labs drawn/reviewed/ok'd for chemo. IV Keytruda administered. SEE MAR. Tolerated well. Will return October 15, 2022 at 100o for #10. Safe exit of hospital per ambulatory with friend and son.
[2022-09-28 06:33] LABS: Cortisol Random 11.9 mcg/dL (***)
== END 2022-09-23 10:46 | disposition home or self-care (01) ==
LOC: CHSTREATRM 10:52
PROVIDERS: Visit Provider Internal Medicine Hematology & Oncology
DX: Z51.11 Encounter for antineoplastic chemotherapy (principal); C09.9 Malignant neoplasm of tonsil, unspecified; R45.4 Irritability and anger
CPT/HCPCS: 36415; 80053; 82533; 84443; 85025; 96413; J9271

== ENCOUNTER 2022-10-15 11:03 | Outpatient (CLI) | payer MEDICARE, MEDICAID, SELFPAY ==
[2022-10-15 11:07] VITALS: BMI 19.3
[2022-10-15 11:17] VITALS: BP 172/86; PULSE 92; RESP 16; TEMP 36.7; O2SAT 98
[2022-10-15 11:26] LABS: Basophils Absolute Auto 0.05 K/mm3 (0.00-0.10); Basophils Percent Auto 0.5 % (0.0-1.0); Eosinophils Absolute Auto 0.92 K/mm3 (0.02-0.50); Eosinophils Percent Auto 9.5 % (1.0-6.0); Hematocrit 37.1 % (40.0-54.0); Hemoglobin 12.1 g/dL (14.0-18.0); Immature Granulocyte Absolute 0.05 K/mm3 (0.00-0.00); Immature Granulocyte Percent A 0.5 % (0.0-0.0); Lymphocytes Percent Auto 9.3 % (18.0-42.0); Mean Corpuscular HGB Conc 32.6 g/dL (32.0-36.0); Mean Corpuscular Hemoglobin 35.2 pg (27.0-31.0); Mean Corpuscular Volume 107.8 fL (78.0-102.0); Mean Platelet Volume 9.4 fl (8.7-11.0); Monocytes Absolute Auto 1.08 K/mm3 (0.10-0.90); Monocytes Percent Auto 11.2 % (2.0-11.0); Neutrophils Absolute Auto 6.7 K/mm3 (1.7-7.2); Platelet Count Result 202 K/mm3 (150-420); Red Blood Count 3.44 M/mm3 (4.70-6.10); Red Cell Distribution Width 11.6 % (11.6-14.4); White Blood Count 9.7 K/mm3 (4.8-10.8)
[2022-10-15 11:41] VITALS: BP 121/63; PULSE 68; RESP 16; TEMP 36.6; O2SAT 98
--- NOTE | 2022-10-15 11:42 | PC.NURSE ---
Patient here for monthly port flush. Procedure explained. Port flushed administered. SEE vascular assessment/Mar. Tolerated well. Port site asystomatic of s/sx of infection. Safe exit of hospital with /amb. Will return 11/18/22 0900 for next port flush.
[2022-10-15 11:43] LABS: Alanine Aminotransferase 11 U/L (16-63); Albumin Level 3.3 g/dL (3.4-5.0); Alkaline Phosphatase 119 U/L (46-116); Anion Gap 7 mmol/L (8-16); Aspartate Amino Transferase 12 U/L (15-37); Bilirubin,Total 0.2 mg/dL (0.00-1.00); Blood Urea Nitrogen 27 mg/dL (7-18); Calcium 8.7 mg/dL (8.5-10.1); Carbon Dioxide 28 mmol/L (21-32); Chloride 104 mmol/L (98-108); Estimated CRCL calculation 49 ml/min; Estimated Glomerular Filt Rate 56; Glucose 101 mg/dL (70-99); Osmolality Calculated 293 mOsm/kg (285-295); Potassium 4.4 mmol/L (3.5-5.1); Sodium 139 mmol/L (136-145); Total Protein 7.2 g/dL (6.4-8.2)
[2022-10-15] MEDS: PEMBROLIZUMAB 200 MG in SODIUM CHLORIDE 0.9% IV 100 ML IVPB (11:45)
[2022-10-15] MEDS: HEPARIN SODIUM LOCK FLUSH 500 UNITS/5 ML SYRINGE IV PUSH (12:13)
--- NOTE | 2022-10-15 12:15 | PC.NURSE ---
Patient here for #10 Keytruda IV infusion. Education given. Blood drawn/reviewed/ok'd. No concerns voiced. IV Keytruda administered. SEE MAR. Tolerated well. Safe exit of hospital per ambulatory with friend. Will return 11/04/22 at 1000 for #11.
== END 2022-10-15 11:04 | disposition home or self-care (01) ==
LOC: CHSTREATRM 11:05
PROVIDERS: Visit Provider Internal Medicine Hematology & Oncology
DX: Z51.11 Encounter for antineoplastic chemotherapy (principal); C09.9 Malignant neoplasm of tonsil, unspecified
CPT/HCPCS: 36415; 36592; 80053; 85025; 96413; 96523; J9271

== ENCOUNTER 2022-11-04 09:56 | Outpatient (CLI) | payer MEDICARE, MEDICAID, SELFPAY ==
[2022-11-04 10:00] VITALS: BP 173/83; PULSE 72; RESP 14; TEMP 36.5; O2SAT 98
[2022-11-04 10:14] LABS: Hematocrit 33.4 % (40.0-54.0); Hemoglobin 10.8 g/dL (14.0-18.0); Mean Corpuscular HGB Conc 32.3 g/dL (32.0-36.0); Mean Platelet Volume 9.1 fl (8.7-11.0); Platelet Count Result 194 K/mm3 (150-420); Red Blood Count 3.18 M/mm3 (4.70-6.10); White Blood Count 7.6 K/mm3 (4.8-10.8)
[2022-11-04 10:28] LABS: Band Neutrophils Percent 1 % (0-6); Basophils Absolute Manual 0.07 K/mm3 (0-0.1); Basophils Percent Manual 1 % (0-1); Eosinophils Absolute Manual 0.83 K/mm3 (0.02-0.5); Eosinophils Percent Manual 11 % (1-6); Lymphocytes Absolute Manual 0.83 K/mm3 (1.1-4.5); Lymphocytes Percent Manual 11 % (18-44); Monocytes Absolute Manual 0.68 K/mm3 (0.1-0.90); Monocytes Percent Manual 9 % (3-9); Neutrophils Absolute Manual 5.16 K/mm3 (1.3-6.7); Neutrophils Percent Manual 67 % (46-73); Platelet Estimate Adequate (Adequate); Total Cells Counted 100
[2022-11-04 10:42] LABS: Alanine Aminotransferase 14 U/L (16-63); Albumin Level 3.8 g/dL (3.4-5.0); Alkaline Phosphatase 127 U/L (46-116); Anion Gap 9 mmol/L (8-16); Bilirubin,Total 0.2 mg/dL (0.00-1.00); Blood Urea Nitrogen 44 mg/dL (7-18); Carbon Dioxide 27 mmol/L (21-32); Chloride 107 mmol/L (98-108); Estimated CRCL calculation 46 ml/min; Estimated Glomerular Filt Rate 47; Glucose 97 mg/dL (70-99); Osmolality Calculated 307 mOsm/kg (285-295); Potassium 4.2 mmol/L (3.5-5.1); Sodium 143 mmol/L (136-145); Total Protein 7.5 g/dL (6.4-8.2)
[2022-11-04] MEDS: PEMBROLIZUMAB 200 MG in SODIUM CHLORIDE 0.9% IV 100 ML IVPB (10:45)
[2022-11-04 10:52] LABS: Aspartate Amino Transferase 12 U/L (15-37)
[2022-11-04] MEDS: HEPARIN SODIUM LOCK FLUSH 500 UNITS/5 ML SYRINGE IV PUSH (11:20)
[2022-11-04 11:24] VITALS: BP 169/89; PULSE 80; RESP 14; TEMP 36.4; O2SAT 97
--- NOTE | 2022-11-04 11:26 | PC.NURSE ---
Patient here for chemo Keytruda #11of 12. Education given. No concerns voiced. Labs drawn/reviewed/ok'd. IV Keytruda administered see JUN. Tolerated well. Will see Dr Nicole on Thursday in clinic. Will return for #12 on 11/25/22 at [address] Nicole. Safe exit of hospital with friend and son ambulatory.
[2022-11-08 05:14] LABS: Cortisol Random 10.9 mcg/dL (***)
== END 2022-11-04 09:57 | disposition home or self-care (01) ==
LOC: CHSTREATRM 09:59
PROVIDERS: Visit Provider Internal Medicine Hematology & Oncology
DX: Z51.11 Encounter for antineoplastic chemotherapy (principal); C09.9 Malignant neoplasm of tonsil, unspecified; R45.4 Irritability and anger
CPT/HCPCS: 36415; 36592; 80053; 82533; 84443; 85025; 96413; J9271

== ENCOUNTER 2022-11-27 10:07 | Outpatient (CLI) | payer MEDICARE, MEDICAID, SELFPAY ==
[2022-11-27 10:29] VITALS: BP 189/88; PULSE 68; RESP 14; TEMP 36.6; O2SAT 99
[2022-11-27 10:31] VITALS: BMI 21.5
[2022-11-27 10:34] LABS: Basophils Absolute Auto 0.03 K/mm3 (0.00-0.10); Basophils Percent Auto 0.4 % (0.0-1.0); Eosinophils Absolute Auto 0.66 K/mm3 (0.02-0.50); Eosinophils Percent Auto 9.6 % (1.0-6.0); Hematocrit 34.4 % (40.0-54.0); Hemoglobin 11.5 g/dL (14.0-18.0); Immature Granulocyte Absolute 0.02 K/mm3 (0.00-0.00); Immature Granulocyte Percent A 0.3 % (0.0-0.0); Lymphocytes Absolute Auto 0.74 K/mm3 (1.10-4.50); Lymphocytes Percent Auto 10.7 % (18.0-42.0); Mean Corpuscular HGB Conc 33.4 g/dL (32.0-36.0); Mean Corpuscular Hemoglobin 34.1 pg (27.0-31.0); Mean Corpuscular Volume 102.1 fL (78.0-102.0); Mean Platelet Volume 9.3 fl (8.7-11.0); Monocytes Absolute Auto 0.75 K/mm3 (0.10-0.90); Monocytes Percent Auto 10.9 % (2.0-11.0); Neutrophils Absolute Auto 4.7 K/mm3 (1.7-7.2); Neutrophils Percent Auto 68.1 % (50.0-70.0); Platelet Count Result 161 K/mm3 (150-420); Red Blood Count 3.37 M/mm3 (4.70-6.10); Red Cell Distribution Width 12.6 % (11.6-14.4); White Blood Count 6.9 K/mm3 (4.8-10.8)
[2022-11-27 10:49] LABS: Albumin Level 4.1 g/dL (3.4-5.0); Alkaline Phosphatase 105 U/L (46-116); Anion Gap 9 mmol/L (8-16); Aspartate Amino Transferase 15 U/L (15-37); Bilirubin,Total 0.4 mg/dL (0.00-1.00); Blood Urea Nitrogen 38 mg/dL (7-18); Carbon Dioxide 27 mmol/L (21-32); Chloride 106 mmol/L (98-108); Estimated CRCL calculation 54 ml/min; Estimated Glomerular Filt Rate 54; Glucose 102 mg/dL (70-99); Osmolality Calculated 303 mOsm/kg (285-295); Potassium 3.8 mmol/L (3.5-5.1); Sodium 142 mmol/L (136-145); Total Protein 7.4 g/dL (6.4-8.2)
[2022-11-27] MEDS: PEMBROLIZUMAB 200 MG in SODIUM CHLORIDE 0.9% IV 100 ML IVPB (11:00)
[2022-11-27 11:07] LABS: Alanine Aminotransferase 7 U/L (16-63)
[2022-11-27] MEDS: HEPARIN SODIUM LOCK FLUSH 500 UNITS/5 ML SYRINGE IV PUSH (11:31)
--- NOTE | 2022-11-27 11:38 | PC.NURSE ---
Patient here for cycle #12 of Chemo Keytruda infusion. No concerns voiced. Reports being eating good. Has had weight increase. Labs reviewed and ok'd for chemo. Keytruda infusion administered. See MAR. Tolerated well. Safe exit of hospital per amb/self.
== END 2022-11-27 10:08 | disposition home or self-care (01) ==
LOC: CHSTREATRM 10:10
PROVIDERS: Visit Provider Internal Medicine Hematology & Oncology
DX: Z51.11 Encounter for antineoplastic chemotherapy (principal); C03.9 Malignant neoplasm of gum, unspecified
CPT/HCPCS: 36415; 80053; 85025; 96413; J9271

== ENCOUNTER 2023-01-15 09:51 | Outpatient (CLI) | payer MEDICARE, MEDICAID, SELFPAY ==
[2023-01-15 10:11] LABS: Basophils Absolute Auto 0.04 K/mm3 (0.00-0.10); Basophils Percent Auto 0.5 % (0.0-1.0); Eosinophils Absolute Auto 0.72 K/mm3 (0.02-0.50); Eosinophils Percent Auto 8.9 % (1.0-6.0); Hematocrit 38.3 % (40.0-54.0); Hemoglobin 12.9 g/dL (14.0-18.0); Immature Granulocyte Absolute 0.02 K/mm3 (0.00-0.00); Immature Granulocyte Percent A 0.2 % (0.0-0.0); Lymphocytes Percent Auto 11.1 % (18.0-42.0); Mean Corpuscular HGB Conc 33.7 g/dL (32.0-36.0); Mean Corpuscular Hemoglobin 33.1 pg (27.0-31.0); Mean Corpuscular Volume 98.2 fL (78.0-102.0); Mean Platelet Volume 9.6 fl (8.7-11.0); Monocytes Absolute Auto 0.95 K/mm3 (0.10-0.90); Monocytes Percent Auto 11.7 % (2.0-11.0); Neutrophils Absolute Auto 5.5 K/mm3 (1.7-7.2); Neutrophils Percent Auto 67.6 % (50.0-70.0); Platelet Count Result 181 K/mm3 (150-420); Red Cell Distribution Width 13.2 % (11.6-14.4); White Blood Count 8.1 K/mm3 (4.8-10.8)
[2023-01-15 10:12] VITALS: BP 180/68; PULSE 78; RESP 14; TEMP 36.6; O2SAT 98
[2023-01-15 10:35] LABS: Alanine Aminotransferase 7 U/L (16-63); Alkaline Phosphatase 119 U/L (46-116); Anion Gap 9 mmol/L (8-16); Aspartate Amino Transferase < 10 U/L (15-37); Bilirubin,Total 0.4 mg/dL (0.00-1.00); Blood Urea Nitrogen 40 mg/dL (7-18); Calcium 9.5 mg/dL (8.5-10.1); Carbon Dioxide 26 mmol/L (21-32); Chloride 105 mmol/L (98-108); Estimated CRCL calculation 37 ml/min; Estimated Glomerular Filt Rate 37; Glucose 103 mg/dL (70-99); Osmolality Calculated 299 mOsm/kg (285-295); Potassium 3.7 mmol/L (3.5-5.1); Sodium 140 mmol/L (136-145); Thyroid Stimulating Hormone 12.58 uIU/mL (0.36-3.74); Total Protein 7.3 g/dL (6.4-8.2)
[2023-01-15] MEDS: PEMBROLIZUMAB 200 MG in SODIUM CHLORIDE 0.9% IV 100 ML IVPB (10:45)
[2023-01-15] MEDS: HEPARIN SODIUM LOCK FLUSH 500 UNITS/5 ML SYRINGE IV PUSH (11:20)
--- NOTE | 2023-01-15 11:29 | PC.NURSE ---
Patient here for #13 Keytruda infusion. Education given. No concerns voiced. Keytruda administered. SEE MAR. Tolerated well. Safe exit of hospital per self/amb. Will return 02/03/23 at 1000 for #14.
[2023-01-19 09:27] LABS: Cortisol Random 7.3 mcg/dL (***)
== END 2023-01-15 09:52 | disposition home or self-care (01) ==
LOC: CHSTREATRM 09:54
PROVIDERS: Visit Provider Internal Medicine Hematology & Oncology
DX: Z51.11 Encounter for antineoplastic chemotherapy (principal); C09.9 Malignant neoplasm of tonsil, unspecified; R45.4 Irritability and anger
CPT/HCPCS: 36415; 80053; 82533; 84443; 85025; 96413; J9271

== ENCOUNTER 2023-02-03 09:58 | Outpatient (CLI) | payer MEDICARE, MEDICAID, SELFPAY ==
[2023-02-03 10:26] VITALS: BP 172/88; PULSE 94; RESP 14; TEMP 36.6; O2SAT 99
[2023-02-03 10:27] VITALS: BMI 20.5
[2023-02-03 10:28] LABS: Basophils Absolute Auto 0.05 K/mm3 (0.00-0.10); Basophils Percent Auto 0.6 % (0.0-1.0); Eosinophils Absolute Auto 0.66 K/mm3 (0.02-0.50); Eosinophils Percent Auto 8.4 % (1.0-6.0); Hematocrit 36.8 % (40.0-54.0); Hemoglobin 12.3 g/dL (14.0-18.0); Immature Granulocyte Absolute 0.02 K/mm3 (0.00-0.00); Immature Granulocyte Percent A 0.3 % (0.0-0.0); Lymphocytes Absolute Auto 0.78 K/mm3 (1.10-4.50); Lymphocytes Percent Auto 9.9 % (18.0-42.0); Mean Corpuscular HGB Conc 33.4 g/dL (32.0-36.0); Mean Corpuscular Hemoglobin 33.4 pg (27.0-31.0); Mean Platelet Volume 9.6 fl (8.7-11.0); Monocytes Absolute Auto 0.74 K/mm3 (0.10-0.90); Monocytes Percent Auto 9.4 % (2.0-11.0); Neutrophils Absolute Auto 5.6 K/mm3 (1.7-7.2); Neutrophils Percent Auto 71.4 % (50.0-70.0); Platelet Count Result 180 K/mm3 (150-420); Red Blood Count 3.68 M/mm3 (4.70-6.10); Red Cell Distribution Width 13.2 % (11.6-14.4); White Blood Count 7.9 K/mm3 (4.8-10.8)
[2023-02-03 10:42] LABS: Alanine Aminotransferase 8 U/L (16-63); Albumin Level 3.8 g/dL (3.4-5.0); Alkaline Phosphatase 105 U/L (46-116); Anion Gap 12 mmol/L (8-16); Aspartate Amino Transferase 10 U/L (15-37); Bilirubin,Total 0.3 mg/dL (0.00-1.00); Blood Urea Nitrogen 38 mg/dL (7-18); Carbon Dioxide 25 mmol/L (21-32); Chloride 106 mmol/L (98-108); Estimated CRCL calculation 39 ml/min; Estimated Glomerular Filt Rate 38; Glucose 92 mg/dL (70-99); Osmolality Calculated 305 mOsm/kg (285-295); Sodium 143 mmol/L (136-145)
[2023-02-03] MEDS: PEMBROLIZUMAB 200 MG in SODIUM CHLORIDE 0.9% IV 100 ML IVPB (11:00)
[2023-02-03] MEDS: HEPARIN SODIUM LOCK FLUSH 500 UNITS/5 ML SYRINGE IV PUSH (11:41)
--- NOTE | 2023-02-03 11:43 | PC.NURSE ---
Patient here for Beth #14. Education given. NO concerns voiced. Medication administered. SEE MAR. Tolerated well. Will return 02/24/23 at 1000 for #15. Safe exit of hospital per self/amb.
[2023-02-03 11:44] VITALS: BP 169/89; PULSE 88; RESP 14; O2SAT 97
== END 2023-02-03 09:59 | disposition home or self-care (01) ==
PROVIDERS: Visit Provider Internal Medicine Hematology & Oncology
DX: Z51.11 Encounter for antineoplastic chemotherapy (principal); C09.9 Malignant neoplasm of tonsil, unspecified
CPT/HCPCS: 36415; 80053; 85025; 96413; J9271

== ENCOUNTER 2023-02-24 10:15 | Outpatient (CLI) | payer MEDICARE, MEDICAID, SELFPAY ==
[2023-02-24 10:42] VITALS: BMI 19.8
[2023-02-24 10:44] VITALS: BP 148/84; PULSE 68; RESP 14; TEMP 36.4; O2SAT 98
[2023-02-24 10:44] LABS: Basophils Absolute Auto 0.04 K/mm3 (0.00-0.10); Basophils Percent Auto 0.3 % (0.0-1.0); Eosinophils Absolute Auto 0.44 K/mm3 (0.02-0.50); Eosinophils Percent Auto 3.7 % (1.0-6.0); Hematocrit 33.7 % (40.0-54.0); Hemoglobin 11.1 g/dL (14.0-18.0); Immature Granulocyte Absolute 0.14 K/mm3 (0.00-0.00); Immature Granulocyte Percent A 1.2 % (0.0-0.0); Lymphocytes Absolute Auto 0.73 K/mm3 (1.10-4.50); Lymphocytes Percent Auto 6.1 % (18.0-42.0); Mean Corpuscular HGB Conc 32.9 g/dL (32.0-36.0); Mean Corpuscular Hemoglobin 32.7 pg (27.0-31.0); Mean Corpuscular Volume 99.4 fL (78.0-102.0); Mean Platelet Volume 9.2 fl (8.7-11.0); Monocytes Absolute Auto 1.06 K/mm3 (0.10-0.90); Monocytes Percent Auto 8.9 % (2.0-11.0); Neutrophils Absolute Auto 9.5 K/mm3 (1.7-7.2); Neutrophils Percent Auto 79.8 % (50.0-70.0); Platelet Count Result 345 K/mm3 (150-420); Red Blood Count 3.39 M/mm3 (4.70-6.10); Red Cell Distribution Width 13.4 % (11.6-14.4); White Blood Count 11.9 K/mm3 (4.8-10.8)
[2023-02-24 11:07] LABS: Alanine Aminotransferase 28 U/L (16-63); Albumin Level 3.3 g/dL (3.4-5.0); Alkaline Phosphatase 164 U/L (46-116); Anion Gap 7 mmol/L (8-16); Aspartate Amino Transferase 15 U/L (15-37); Bilirubin,Total 0.3 mg/dL (0.00-1.00); Blood Urea Nitrogen 57 mg/dL (7-18); Carbon Dioxide 30 mmol/L (21-32); Chloride 103 mmol/L (98-108); Estimated CRCL calculation 32 ml/min; Estimated Glomerular Filt Rate 32; Glucose 111 mg/dL (70-99); Osmolality Calculated 306 mOsm/kg (285-295); Potassium 4.7 mmol/L (3.5-5.1); Sodium 140 mmol/L (136-145); Thyroid Stimulating Hormone 25.64 uIU/mL (0.36-3.74); Total Protein 7.3 g/dL (6.4-8.2)
--- NOTE | 2023-02-24 11:24 | PC.NURSE ---
1030 Patient here for #15 chemo Keytruda infusion. Labs drawn/reviewed/called to Dr. Soria r/t Creatinine 1.21. Patient was in hospital 2 weeks ago r/t HTN and chest pain. Vital signs/b/p good today. Patient reports feeling much better. 1120 Dr. Soria returned call and is ok for patient to have Keytruda today. Pharmacy notified ok to mix.
[2023-02-24] MEDS: PEMBROLIZUMAB 200 MG in SODIUM CHLORIDE 0.9% IV 100 ML IVPB (11:55)
[2023-02-24] MEDS: HEPARIN SODIUM LOCK FLUSH 500 UNITS/5 ML SYRINGE (11:58)
[2023-02-24 12:30] VITALS: BP 145/77; PULSE 68; RESP 14; O2SAT 98
--- NOTE | 2023-02-24 12:41 | PC.NURSE ---
Keytruda administered. see MAR. Tolerated well. Will return 03/17/23 for #16 Keytruda. Reports had a tele visit with Dr. Soria coming up. Safe exit of hospital per self/amb.
[2023-03-02 14:49] LABS: Cortisol Random 21.3 mcg/dL (***)
== END 2023-02-24 10:16 | disposition home or self-care (01) ==
PROVIDERS: Visit Provider Internal Medicine Hematology & Oncology
DX: Z51.11 Encounter for antineoplastic chemotherapy (principal); C09.9 Malignant neoplasm of tonsil, unspecified; R45.4 Irritability and anger
CPT/HCPCS: 80053; 82533; 84443; 85025; 96413; J9271

== ENCOUNTER 2023-03-19 10:00 | Outpatient (CLI) | payer MEDICARE, MEDICAID, SELFPAY ==
[2023-03-19 10:23] LABS: Basophils Absolute Auto 0.03 K/mm3 (0.00-0.10); Basophils Percent Auto 0.3 % (0.0-1.0); Eosinophils Absolute Auto 0.85 K/mm3 (0.02-0.50); Eosinophils Percent Auto 9.9 % (1.0-6.0); Hematocrit 33.6 % (40.0-54.0); Immature Granulocyte Absolute 0.04 K/mm3 (0.00-0.00); Immature Granulocyte Percent A 0.5 % (0.0-0.0); Lymphocytes Absolute Auto 0.69 K/mm3 (1.10-4.50); Mean Corpuscular HGB Conc 32.7 g/dL (32.0-36.0); Mean Corpuscular Volume 97.7 fL (78.0-102.0); Mean Platelet Volume 9.4 fl (8.7-11.0); Monocytes Absolute Auto 1.01 K/mm3 (0.10-0.90); Monocytes Percent Auto 11.7 % (2.0-11.0); Neutrophils Percent Auto 69.6 % (50.0-70.0); Platelet Count Result 208 K/mm3 (150-420); Red Blood Count 3.44 M/mm3 (4.70-6.10); Red Cell Distribution Width 13.2 % (11.6-14.4); White Blood Count 8.6 K/mm3 (4.8-10.8)
[2023-03-19 10:24] VITALS: BMI 20.6
[2023-03-19 10:26] VITALS: BP 148/84; PULSE 72; RESP 14; TEMP 36.6; O2SAT 98
[2023-03-19 10:48] LABS: Alanine Aminotransferase 13 U/L (16-63); Albumin Level 3.4 g/dL (3.4-5.0); Alkaline Phosphatase 130 U/L (46-116); Anion Gap 5 mmol/L (8-16); Aspartate Amino Transferase 20 U/L (15-37); Bilirubin,Total 0.3 mg/dL (0.00-1.00); Blood Urea Nitrogen 39 mg/dL (7-18); Calcium 8.7 mg/dL (8.5-10.1); Carbon Dioxide 29 mmol/L (21-32); Chloride 102 mmol/L (98-108); Estimated CRCL calculation 33 ml/min; Estimated Glomerular Filt Rate 32; Glucose 105 mg/dL (70-99); Osmolality Calculated 291 mOsm/kg (285-295); Potassium 4.2 mmol/L (3.5-5.1); Sodium 136 mmol/L (136-145); Total Protein 7.4 g/dL (6.4-8.2)
[2023-03-19] MEDS: PEMBROLIZUMAB 200 MG in SODIUM CHLORIDE 0.9% IV 100 ML IVPB (11:15)
[2023-03-19] MEDS: HEPARIN SODIUM LOCK FLUSH 500 UNITS/5 ML SYRINGE IV PUSH (11:43)
[2023-03-19 11:46] VITALS: BP 145/79; PULSE 68; RESP 14; O2SAT 98
--- NOTE | 2023-03-19 11:55 | PC.NURSE ---
Patient for IV Keytruda infusion. Labs drawn/reviewed/call to Dr. Nicole/lidya. No concerns voiced. This is his #16 Keytruda infusion. IV infusion administered. See MAR. Tolerated well. Safe exit of hospital per self/ambulatory. Will reutrn 04/07/23 at 1000 for #17.KJ
== END 2023-03-19 10:01 | disposition home or self-care (01) ==
PROVIDERS: Visit Provider Internal Medicine Hematology & Oncology
DX: Z51.11 Encounter for antineoplastic chemotherapy (principal); C09.9 Malignant neoplasm of tonsil, unspecified
CPT/HCPCS: 36415; 80053; 85025; 96413; J9271

== ENCOUNTER 2023-04-15 10:17 | Outpatient (CLI) | payer MEDICARE, MEDICAID, SELFPAY ==
[2023-04-15 10:37] VITALS: BMI 19.3
[2023-04-15 10:46] LABS: Basophils Absolute Auto 0.02 K/mm3 (0.00-0.10); Basophils Percent Auto 0.3 % (0.0-1.0); Eosinophils Absolute Auto 0.73 K/mm3 (0.02-0.50); Eosinophils Percent Auto 9.4 % (1.0-6.0); Hematocrit 35.6 % (40.0-54.0); Hemoglobin 11.7 g/dL (14.0-18.0); Immature Granulocyte Absolute 0.02 K/mm3 (0.00-0.00); Immature Granulocyte Percent A 0.3 % (0.0-0.0); Lymphocytes Absolute Auto 0.61 K/mm3 (1.10-4.50); Lymphocytes Percent Auto 7.8 % (18.0-42.0); Mean Corpuscular HGB Conc 32.9 g/dL (32.0-36.0); Mean Corpuscular Hemoglobin 32.1 pg (27.0-31.0); Mean Corpuscular Volume 97.5 fL (78.0-102.0); Mean Platelet Volume 9.2 fl (8.7-11.0); Monocytes Absolute Auto 0.63 K/mm3 (0.10-0.90); Monocytes Percent Auto 8.1 % (2.0-11.0); Neutrophils Absolute Auto 5.8 K/mm3 (1.7-7.2); Neutrophils Percent Auto 74.1 % (50.0-70.0); Platelet Count Result 200 K/mm3 (150-420); Red Blood Count 3.65 M/mm3 (4.70-6.10); Red Cell Distribution Width 13.7 % (11.6-14.4); White Blood Count 7.8 K/mm3 (4.8-10.8)
[2023-04-15 11:07] VITALS: BP 139/88; PULSE 88; RESP 14; TEMP 36.6; O2SAT 97
[2023-04-15 11:10] LABS: Alanine Aminotransferase 12 U/L (16-63); Albumin Level 4.1 g/dL (3.4-5.0); Alkaline Phosphatase 127 U/L (46-116); Anion Gap 9 mmol/L (8-16); Aspartate Amino Transferase 11 U/L (15-37); Bilirubin,Total 0.4 mg/dL (0.00-1.00); Blood Urea Nitrogen 51 mg/dL (7-18); Calcium 9.5 mg/dL (8.5-10.1); Carbon Dioxide 27 mmol/L (21-32); Chloride 101 mmol/L (98-108); Estimated CRCL calculation 30 ml/min; Estimated Glomerular Filt Rate 29; Glucose 103 mg/dL (70-99); Osmolality Calculated 297 mOsm/kg (285-295); Potassium 4.4 mmol/L (3.5-5.1); Sodium 137 mmol/L (136-145); Thyroid Stimulating Hormone 15.31 uIU/mL (0.36-3.74); Total Protein 8.6 g/dL (6.4-8.2)
[2023-04-15] MEDS: PEMBROLIZUMAB 200 MG in SODIUM CHLORIDE 0.9% IV 100 ML IVPB (11:26)
[2023-04-15] MEDS: SODIUM CHLORIDE 0.9% IV 1,000 ML 500 ML IV CONT (12:01)
[2023-04-15] MEDS: HEPARIN SODIUM LOCK FLUSH 500 UNITS/5 ML SYRINGE IV PUSH (13:44)
--- NOTE | 2023-04-15 13:57 | PC.NURSE ---
Patient here for Keytruda #17. Just came from Dr. Soria's clinic. Labs drawn reviewed and ok'd by . Adding 1000 ml Normal saline bolus also R/T ^creatinine from last month. Keytruda and Normal saline administered see JUN. Tolerated well. Will return on 05/05/23 at 1000 for #18. Safe exit of hospital per self/ambulatory.
[2023-04-18 04:32] LABS: Cortisol Random 17.7 mcg/dL (***)
== END 2023-04-15 10:18 | disposition home or self-care (01) ==
LOC: CHSTREATRM 10:21
PROVIDERS: Visit Provider Internal Medicine Hematology & Oncology
DX: Z51.11 Encounter for antineoplastic chemotherapy (principal); C09.9 Malignant neoplasm of tonsil, unspecified; R45.4 Irritability and anger
CPT/HCPCS: 36415; 80053; 82533; 84443; 85025; 96360; 96361; 96413; J7040; J9271

== ENCOUNTER 2023-05-08 10:02 | Outpatient (CLI) | payer MEDICARE, MEDICAID, SELFPAY ==
[2023-05-08 10:25] LABS: Hematocrit 33.1 % (40.0-54.0); Hemoglobin 10.8 g/dL (14.0-18.0); Mean Corpuscular HGB Conc 32.6 g/dL (32.0-36.0); Mean Corpuscular Hemoglobin 31.5 pg (27.0-31.0); Mean Corpuscular Volume 96.5 fL (78.0-102.0); Mean Platelet Volume 9.5 fl (8.7-11.0); Platelet Count Result 202 K/mm3 (150-420); Red Blood Count 3.43 M/mm3 (4.70-6.10); Red Cell Distribution Width 14.4 % (11.6-14.4); White Blood Count 8.3 K/mm3 (4.8-10.8)
[2023-05-08 10:26] VITALS: BP 140/84; PULSE 68; RESP 14; TEMP 36.6; O2SAT 96; BMI 20.5
[2023-05-08 10:33] LABS: Band Neutrophils Percent 0 % (0-6); Basophils Absolute Manual 0.08 K/mm3 (0-0.1); Basophils Percent Manual 1 % (0-1); Eosinophils Absolute Manual 1.49 K/mm3 (0.02-0.5); Eosinophils Percent Manual 18 % (1-6); Lymphocytes Absolute Manual 0.66 K/mm3 (1.1-4.5); Lymphocytes Percent Manual 8 % (18-44); Monocytes Absolute Manual 0.99 K/mm3 (0.1-0.90); Monocytes Percent Manual 12 % (3-9); Neutrophils Absolute Manual 5.06 K/mm3 (1.3-6.7); Neutrophils Percent Manual 61 % (46-73); Platelet Estimate Adequate (Adequate); Total Cells Counted 100
[2023-05-08 10:40] LABS: Alanine Aminotransferase 13 U/L (16-63); Albumin Level 3.6 g/dL (3.4-5.0); Alkaline Phosphatase 125 U/L (46-116); Anion Gap 10 mmol/L (8-16); Aspartate Amino Transferase 10 U/L (15-37); Bilirubin,Total 0.3 mg/dL (0.00-1.00); Blood Urea Nitrogen 52 mg/dL (7-18); Calcium 8.7 mg/dL (8.5-10.1); Carbon Dioxide 25 mmol/L (21-32); Chloride 106 mmol/L (98-108); Estimated CRCL calculation 41 ml/min; Estimated Glomerular Filt Rate 40; Glucose 106 mg/dL (70-99); Osmolality Calculated 306 mOsm/kg (285-295); Potassium 4.5 mmol/L (3.5-5.1); Sodium 141 mmol/L (136-145); Total Protein 7.4 g/dL (6.4-8.2)
[2023-05-08] MEDS: PEMBROLIZUMAB 200 MG in SODIUM CHLORIDE 0.9% IV 100 ML IVPB (11:16)
[2023-05-08] MEDS: HEPARIN SODIUM LOCK FLUSH 500 UNITS/5 ML SYRINGE (11:56)
[2023-05-08 11:58] VITALS: BP 146/80; PULSE 72; RESP 14; TEMP 36.6; O2SAT 98
--- NOTE | 2023-05-08 11:59 | PC.NURSE ---
Patient here for #18 Beth. Education given. Labs drawn/reviewed/ok'd. No concerns voiced. IV infusion administered. SEE MAR. Tolerated well. Will return 06/02/23 at 1030 for #19. Safe exit of hospital per self/ambulatory.
== END 2023-05-08 10:03 | disposition home or self-care (01) ==
PROVIDERS: Visit Provider Internal Medicine Hematology & Oncology
DX: Z51.11 Encounter for antineoplastic chemotherapy (principal); C09.9 Malignant neoplasm of tonsil, unspecified
CPT/HCPCS: 36415; 80053; 85025; 96413; J9271

== ENCOUNTER 2023-06-09 10:20 | Outpatient (CLI) | payer MEDICARE, MEDICAID, SELFPAY ==
[2023-06-09 10:45] VITALS: BP 132/84; PULSE 64; RESP 16; TEMP 36.6; O2SAT 98; BMI 20.5
[2023-06-09 10:46] LABS: Basophils Absolute Auto 0.04 K/mm3 (0.00-0.10); Basophils Percent Auto 0.5 % (0.0-1.0); Eosinophils Absolute Auto 0.85 K/mm3 (0.02-0.50); Hematocrit 34.8 % (40.0-54.0); Hemoglobin 11.3 g/dL (14.0-18.0); Immature Granulocyte Absolute 0.02 K/mm3 (0.00-0.00); Immature Granulocyte Percent A 0.2 % (0.0-0.0); Lymphocytes Absolute Auto 0.79 K/mm3 (1.10-4.50); Lymphocytes Percent Auto 9.3 % (18.0-42.0); Mean Corpuscular HGB Conc 32.5 g/dL (32.0-36.0); Mean Corpuscular Hemoglobin 30.8 pg (27.0-31.0); Mean Corpuscular Volume 94.8 fL (78.0-102.0); Mean Platelet Volume 9.4 fl (8.7-11.0); Monocytes Absolute Auto 1.07 K/mm3 (0.10-0.90); Monocytes Percent Auto 12.5 % (2.0-11.0); Neutrophils Absolute Auto 5.8 K/mm3 (1.7-7.2); Neutrophils Percent Auto 67.5 % (50.0-70.0); Platelet Count Result 200 K/mm3 (150-420); Red Blood Count 3.67 M/mm3 (4.70-6.10); Red Cell Distribution Width 13.6 % (11.6-14.4); White Blood Count 8.5 K/mm3 (4.8-10.8)
[2023-06-09 11:07] LABS: Alanine Aminotransferase 11 U/L (16-63); Albumin Level 3.8 g/dL (3.4-5.0); Alkaline Phosphatase 130 U/L (46-116); Anion Gap 10 mmol/L (8-16); Aspartate Amino Transferase 11 U/L (15-37); Bilirubin,Total 0.5 mg/dL (0.00-1.00); Blood Urea Nitrogen 51 mg/dL (7-18); Calcium 8.6 mg/dL (8.5-10.1); Carbon Dioxide 26 mmol/L (21-32); Chloride 105 mmol/L (98-108); Estimated CRCL calculation 39 ml/min; Estimated Glomerular Filt Rate 38; Osmolality Calculated 305 mOsm/kg (285-295); Sodium 141 mmol/L (136-145); Thyroid Stimulating Hormone 29.46 uIU/mL (0.36-3.74); Total Protein 8.4 g/dL (6.4-8.2)
[2023-06-09 11:14] LABS: Glucose 93 mg/dL (70-99)
[2023-06-09] MEDS: PEMBROLIZUMAB 200 MG in SODIUM CHLORIDE 0.9% IV 100 ML IVPB (11:25)
[2023-06-09 11:53] VITALS: BP 140/84; PULSE 60; RESP 14; O2SAT 97
[2023-06-09] MEDS: HEPARIN SODIUM LOCK FLUSH 500 UNITS/5 ML SYRINGE IV PUSH (12:04)
--- NOTE | 2023-06-09 13:11 | PC.NURSE ---
Patient here for chemo cycle #19. Labs drawn/reviewed/ok'd. No concerns voiced. Patient did report happy to get feeding tube out finally. IV Keytruda administered. SEE MAR. Tolerated well. Will return 06/30/23 at 1030 for #20. Safe exit of hospital per self/ambulatory.
[2023-06-13 07:27] LABS: Cortisol Random 16.2 mcg/dL (***)
== END 2023-06-09 12:30 | disposition home or self-care (01) ==
LOC: CHSTREATRM 10:23
PROVIDERS: Visit Provider Internal Medicine Hematology & Oncology
DX: Z51.11 Encounter for antineoplastic chemotherapy (principal); C09.9 Malignant neoplasm of tonsil, unspecified; R45.4 Irritability and anger
CPT/HCPCS: 36415; 80053; 82533; 84443; 85025; 96413; J9271

== ENCOUNTER 2023-07-07 10:11 | Outpatient (CLI) | payer MEDICARE, MEDICAID, SELFPAY ==
[2023-07-07 10:34] VITALS: BMI 19.4
[2023-07-07 10:38] LABS: Hematocrit 34.7 % (40.0-54.0); Mean Corpuscular HGB Conc 31.7 g/dL (32-36); Mean Corpuscular Volume 94.6 fL (78.0-102.0); Mean Platelet Volume 9.4 fl (8.7-11.0); Platelet Count Result 212 K/mm3 (150-420); Red Blood Count 3.67 M/mm3 (4.70-6.10); Red Cell Distribution Width 13.1 % (11.6-14.4); White Blood Count 7.4 K/mm3 (4.8-10.8)
[2023-07-07 10:40] VITALS: BP 143/82; PULSE 72; RESP 14; TEMP 36.4; O2SAT 98
[2023-07-07 10:51] LABS: Band Neutrophils Percent 1 % (0-6); Basophils Absolute Manual 0.07 K/mm3 (0-0.1); Basophils Percent Manual 1 % (0-1); Eosinophils Absolute Manual 0.81 K/mm3 (0.02-0.50); Eosinophils Percent Manual 11 % (1-6); Lymphocytes Absolute Manual 0.96 K/mm3 (1.1-4.5); Lymphocytes Percent Manual 13 % (18-44); Monocytes Absolute Manual 0.44 K/mm3 (0.1-0.90); Monocytes Percent Manual 6 % (3-9); Neutrophils Percent Manual 68 % (46-73); Platelet Estimate Adequate (Adequate); Total Cells Counted 100
[2023-07-07 10:57] LABS: Alanine Aminotransferase 13 U/L (16-63); Albumin Level 3.6 g/dL (3.4-5.0); Alkaline Phosphatase 125 U/L (46-116); Anion Gap 11 mmol/L (4-12); Aspartate Amino Transferase 13 U/L (15-37); Bilirubin,Total 0.2 mg/dL (0.00-1.00); Blood Urea Nitrogen 52 mg/dL (7-18); Calcium 8.9 mg/dL (8.5-10.1); Carbon Dioxide 26 mmol/L (21-32); Chloride 105 mmol/L (98-108); Estimated CRCL calculation 38 ml/min; Estimated Glomerular Filt Rate 40; Glucose 101 mg/dL (70-99); Osmolality Calculated 308 mOsm/kg (285-295); Potassium 4.3 mmol/L (3.5-5.1); Sodium 142 mmol/L (136-145); Total Protein 7.3 g/dL (6.4-8.2)
[2023-07-07] MEDS: PEMBROLIZUMAB 200 MG in SODIUM CHLORIDE 0.9% IV 100 ML IVPB (11:25)
[2023-07-07] MEDS: HEPARIN SODIUM LOCK FLUSH 500 UNITS/5 ML SYRINGE IV PUSH (11:55)
--- NOTE | 2023-07-07 11:56 | PC.NURSE ---
Patient here for Keytruda infusion. Labs drawn/reviewed/ok'd. No concerns voiced. Ongoing education given on med. Infusion administered. SEE MAR. Tolerated well. Safe exit of hospital per self/ambulatory.
[2023-07-07 11:58] VITALS: BP 149/71; PULSE 80; RESP 14; TEMP 36.6; O2SAT 97
== END 2023-07-07 10:12 | disposition home or self-care (01) ==
PROVIDERS: Visit Provider Internal Medicine Hematology & Oncology
DX: Z51.11 Encounter for antineoplastic chemotherapy (principal); C09.9 Malignant neoplasm of tonsil, unspecified
CPT/HCPCS: 36415; 80053; 85025; 96413; J9271

== ENCOUNTER 2023-08-04 10:09 | Outpatient (CLI) | payer MEDICARE, MEDICAID, SELFPAY ==
[2023-08-04 10:42] LABS: Basophils Absolute Auto 0.03 K/mm3 (0.00-0.10); Basophils Percent Auto 0.3 % (0.0-1.0); Eosinophils Absolute Auto 0.88 K/mm3 (0.02-0.50); Eosinophils Percent Auto 10.2 % (1.0-6.0); Hemoglobin 10.8 g/dL (14.0-18.0); Immature Granulocyte Absolute 0.03 K/mm3 (0.00-0.00); Immature Granulocyte Percent A 0.3 % (0.0-0.0); Lymphocytes Absolute Auto 0.68 K/mm3 (1.10-4.50); Lymphocytes Percent Auto 7.9 % (18.0-42.0); Mean Corpuscular HGB Conc 32.7 g/dL (32-36); Mean Corpuscular Hemoglobin 30.9 pg (27.0-31.0); Mean Corpuscular Volume 94.6 fL (78.0-102.0); Mean Platelet Volume 9.6 fl (8.7-11.0); Monocytes Percent Auto 8.1 % (2.0-11.0); Neutrophils Absolute Auto 6.33 K/mm3 (1.70-7.20); Neutrophils Percent Auto 73.2 % (50.0-70.0); Platelet Count Result 207 K/mm3 (150-420); Red Blood Count 3.49 M/mm3 (4.70-6.10); Red Cell Distribution Width 13.2 % (11.6-14.4); White Blood Count 8.7 K/mm3 (4.8-10.8)
[2023-08-04 10:47] VITALS: BP 174/69; PULSE 72; RESP 14; TEMP 36.4; O2SAT 97
[2023-08-04 10:56] LABS: Alanine Aminotransferase 11 U/L (16-63); Albumin Level 3.5 g/dL (3.4-5.0); Alkaline Phosphatase 130 U/L (46-116); Anion Gap 13 mmol/L (4-12); Aspartate Amino Transferase 15 U/L (15-37); Bilirubin,Total 0.2 mg/dL (0.00-1.00); Blood Urea Nitrogen 52 mg/dL (7-18); Calcium 8.6 mg/dL (8.5-10.1); Carbon Dioxide 24 mmol/L (21-32); Chloride 105 mmol/L (98-108); Estimated Glomerular Filt Rate 36; Glucose 101 mg/dL (70-99); Osmolality Calculated 308 mOsm/kg (285-295); Potassium 4.5 mmol/L (3.5-5.1); Sodium 142 mmol/L (136-145); Total Protein 7.2 g/dL (6.4-8.2)
[2023-08-04] MEDS: PEMBROLIZUMAB 200 MG in SODIUM CHLORIDE 0.9% IV 100 ML IVPB (11:00)
[2023-08-04 11:07] LABS: Thyroid Stimulating Hormone 16.44 uIU/mL (0.36-3.74)
[2023-08-04 11:20] VITALS: BMI 19.6
[2023-08-04] MEDS: HEPARIN SODIUM LOCK FLUSH 500 UNITS/5 ML SYRINGE IV PUSH (11:36)
--- NOTE | 2023-08-04 11:36 | PC.NURSE ---
Patient here for Keytruda infusion #21. No concerns voiced. Labs drawn/reviewed/ok'd. Keytruda infusion administered. SEE MAR. Tolerated well. Will return 08/25/23 at 1000. Safe exit of hospital per self/ambulatory.
[2023-08-04 11:50] VITALS: BP 156/76; PULSE 72; RESP 14; O2SAT 97
== END 2023-08-04 10:10 | disposition home or self-care (01) ==
PROVIDERS: Visit Provider Internal Medicine Hematology
DX: Z51.11 Encounter for antineoplastic chemotherapy (principal); C09.9 Malignant neoplasm of tonsil, unspecified; R45.4 Irritability and anger
CPT/HCPCS: 80053; 82533; 84443; 85025; 96413; J9271

== ENCOUNTER 2023-08-27 10:07 | Outpatient (CLI) | payer MEDICARE, MEDICAID, SELFPAY ==
[2023-08-27 10:10] VITALS: BP 144/86; PULSE 72; RESP 14; TEMP 36.4; O2SAT 97
[2023-08-27 10:29] LABS: Basophils Absolute Auto 0.04 K/mm3 (0.00-0.10); Basophils Percent Auto 0.5 % (0.0-1.0); Eosinophils Absolute Auto 0.78 K/mm3 (0.02-0.50); Eosinophils Percent Auto 9.9 % (1.0-6.0); Hematocrit 32.9 % (40.0-54.0); Hemoglobin 10.6 g/dL (14.0-18.0); Immature Granulocyte Absolute 0.04 K/mm3 (0.00-0.00); Immature Granulocyte Percent A 0.5 % (0.0-0.0); Lymphocytes Absolute Auto 0.75 K/mm3 (1.10-4.50); Lymphocytes Percent Auto 9.6 % (18.0-42.0); Mean Corpuscular HGB Conc 32.2 g/dL (32-36); Mean Corpuscular Hemoglobin 30.7 pg (27.0-31.0); Mean Corpuscular Volume 95.4 fL (78.0-102.0); Mean Platelet Volume 9.4 fl (8.7-11.0); Monocytes Absolute Auto 0.87 K/mm3 (0.10-0.90); Monocytes Percent Auto 11.1 % (2.0-11.0); Neutrophils Absolute Auto 5.37 K/mm3 (1.70-7.20); Neutrophils Percent Auto 68.4 % (50.0-70.0); Platelet Count Result 176 K/mm3 (150-420); Red Blood Count 3.45 M/mm3 (4.70-6.10); Red Cell Distribution Width 14.5 % (11.6-14.4); White Blood Count 7.9 K/mm3 (4.8-10.8)
[2023-08-27 10:43] LABS: Alanine Aminotransferase 9 U/L (16-63); Albumin Level 3.5 g/dL (3.4-5.0); Alkaline Phosphatase 111 U/L (46-116); Aspartate Amino Transferase 22 U/L (15-37); Bilirubin,Total 0.3 mg/dL (0.00-1.00); Blood Urea Nitrogen 51 mg/dL (7-18); Calcium 8.5 mg/dL (8.5-10.1); Carbon Dioxide 26 mmol/L (21-32); Estimated Glomerular Filt Rate 37; Glucose 88 mg/dL (70-99); Total Protein 7.2 g/dL (6.4-8.2)
[2023-08-27 10:47] LABS: Anion Gap 10 mmol/L (4-12); Chloride 104 mmol/L (98-108); Osmolality Calculated 302 mOsm/kg (285-295); Potassium 4.4 mmol/L (3.5-5.1); Sodium 140 mmol/L (136-145)
[2023-08-27] MEDS: PEMBROLIZUMAB 200 MG in SODIUM CHLORIDE 0.9% IV 100 ML IVPB (11:15)
[2023-08-27] MEDS: HEPARIN SODIUM LOCK FLUSH 500 UNITS/5 ML SYRINGE IV PUSH (12:00)
[2023-08-27 12:03] VITALS: BP 133/89; PULSE 68; RESP 14; TEMP 36.6; O2SAT 97
--- NOTE | 2023-08-27 12:04 | PC.NURSE ---
Patient here for Keytruda infusion. Education given. NO concerns voiced. Labs drawn/reviewed/ok's for treatment. Infusion administered. SEE MAR. Safe exit of hospital per self/amb.
== END 2023-08-27 12:06 | disposition home or self-care (01) ==
PROVIDERS: Visit Provider Internal Medicine Hematology
DX: Z51.11 Encounter for antineoplastic chemotherapy (principal); C09.9 Malignant neoplasm of tonsil, unspecified
CPT/HCPCS: 36591; 80053; 85025; 96413; J9271